=== PATIENT | male | born 1960 | race Caucasian/White ===

== ENCOUNTER → 2019-12-02 09:07 | Outpatient (BNVA) | payer OTHER, SELFPAY | PROVIDERS: Family Provider Family Medicine; PCP Family Medicine; Referring Provider Internal Medicine; Visit Provider Specialist | DX: Z86.73 Personal history of transient ischemic attack (TIA), and cerebral infarction without residual deficits (principal) | CPT/HCPCS: 99205 ==

== ENCOUNTER 2019-12-06 16:30 | Outpatient (CLI) | payer OTHER, SELFPAY ==
--- NOTE | 2019-12-06 16:45 | MRR_ITS ---
PROCEDURE INFORMATION: Exam: MR Head Without Contrast Exam date and time: 12/06/2019 4:36 PM Age: 59 years old Clinical indication: Condition or disease; Other: Cerebrovascular accident TECHNIQUE: Imaging protocol: MR of the head without contrast. COMPARISON: CT head wo con* [id number] 11/02/2019 1:32 PM FINDINGS: Brain: Scattered foci of subcortical and deep white matter T2 hyperintensities which may reflect chronic microvascular ischemia largest subcortical frontal lobe measures 0.5 CM. Areas of periventricular increased T2 signal change. No acute ischemic abnormality. No acute intracranial hemorrhage. Ventricles: Normal. No ventriculomegaly. Bones/joints: Unremarkable. Soft tissues: Unremarkable. Sinuses: Normal as visualized. No acute sinusitis. Mastoid air cells: Normal as visualized. No mastoid effusion. Orbits: Unremarkable. Basilar artery: Likely dolichoectasia distal basilar artery. MR/MR head wo con* [id number] IMPRESSION: 1. No acute ischemic injury. 2. Likely dolichoectasia distal basilar artery versus vessel tortuosity at the vertebral artery bifurcation. 3. Mild white matter signal changes suggesting microvascular ischemia on a chronic basis.
== END 2019-12-06 16:31 | disposition home or self-care (01) ==
LOC: RADSHAW 16:33
PROVIDERS: Family Provider Family Medicine; PCP Family Medicine; Visit Provider Specialist
DX: I63.9 Cerebral infarction, unspecified (principal)
CPT/HCPCS: 70551

== ENCOUNTER 2019-12-16 12:00 | Outpatient (CLI) | payer OTHER, SELFPAY | END 2019-12-16 12:01 | disposition home or self-care (01) | LOC: SLEEP 12-17 12:20 | PROVIDERS: Family Provider Family Medicine; PCP Family Medicine; Visit Provider Internal Medicine Cardiovascular Disease | DX: G47.39 Other sleep apnea (principal); R29.818 Other symptoms and signs involving the nervous system | CPT/HCPCS: G0399 ==

== ENCOUNTER 2019-12-18 11:21 | Outpatient (CLI) | payer OTHER, SELFPAY ==
--- NOTE | 2019-12-18 12:00 | ECG_ITS ---
NAME OF STUDY: TREADMILL STRESS TEST INDICATION: Chest Pain, EXERCISE TREADMILL STRESS ORDERING PHYSICIAN: Claudia CLINICAL INFORMATION: Chest discomfort INTERPRETATION: 1. The patient exercised for 6 minutes and 46 seconds on a Olu protocol. He reached a maximum heart rate of 140 beats per minute, which is 86 % of his maximum predicted heart rate. The test was stopped due to achieving the desired heart rate. 2. The baseline electrocardiogram reveals sinus rhythm with nonspecific ST wave changes and poor R wave progression, possible LVH by voltage criteria. 3. With exercise, there were no obvious ST segment changes to suggest ischemia. There was significant baseline artifact throughout the entire tracing which makes it nearly impossible to interpret. 4. The resting blood pressure was 146/106. The maximum blood pressure was 163/80. 5. At maximum exercise, the patient achieved 10.2 METs with a rate pressure product of 209. 6. The patient experienced no chest pain or arrhythmias during the examination. CONCLUSION: 1. Probably normal exercise treadmill test. 2. Average exercise capacity for age. 3. Hypertensive blood pressure response to exercise. 4. Clinical correlation recommended Electronically Signed On 12-18-2019 17:26:26 OPENER by Alejo Beasley M.D. [id number]
[2019-12-18 12:04] VITALS: BMI 24.9
[2019-12-18 12:20] VITALS: BP 149/103; PULSE 90
== END 2019-12-18 11:22 | disposition home or self-care (01) ==
LOC: CDL 11:22
PROVIDERS: Family Provider Family Medicine; PCP Family Medicine; Visit Provider Internal Medicine Cardiovascular Disease
DX: R06.00 Dyspnea, unspecified (principal)
CPT/HCPCS: 93017

== ENCOUNTER → 2020-02-25 10:59 | Outpatient (BNVA) | payer OTHER, SELFPAY | PROVIDERS: Family Provider Family Medicine; PCP Family Medicine; Visit Provider Family Medicine | DX: R05 Cough (principal); J30.1 Allergic rhinitis due to pollen | CPT/HCPCS: 87400 ==

== ENCOUNTER → 2020-03-23 15:42 | Outpatient (BNVA) | payer OTHER, SELFPAY | PROVIDERS: Family Provider Family Medicine; PCP Family Medicine; Visit Provider Specialist | DX: M54.9 Dorsalgia, unspecified (principal); R20.2 Paresthesia of skin; Z86.73 Personal history of transient ischemic attack (TIA), and cerebral infarction without residual deficits | CPT/HCPCS: 99214 ==

== ENCOUNTER 2020-04-14 20:00 | Outpatient (CLI) | payer OTHER, SELFPAY | END 2020-04-14 20:01 | disposition home or self-care (01) | LOC: SLEEP 04-15 11:59 | PROVIDERS: Family Provider Family Medicine; PCP Family Medicine; Visit Provider Family Medicine | DX: G47.33 Obstructive sleep apnea (adult) (pediatric) (principal) | CPT/HCPCS: 95811 ==

== ENCOUNTER → 2020-12-16 00:01 | Outpatient (BNVA) | payer OTHER, SELFPAY | PROVIDERS: Family Provider Family Medicine; PCP Family Medicine; Visit Provider Nurse Practitioner | DX: M25.569 Pain in unspecified knee (principal) | CPT/HCPCS: 84550; 84560 ==

== ENCOUNTER → 2021-01-01 08:03 | Outpatient (BNVA) | payer OTHER, SELFPAY | PROVIDERS: Family Provider Family Medicine; PCP Family Medicine; Referring Provider Family Medicine; Visit Provider Orthopaedic Surgery | DX: M51.16 Intervertebral disc disorders with radiculopathy, lumbar region (principal) | CPT/HCPCS: 72110 ==

== ENCOUNTER 2021-01-14 13:27 | Outpatient (RCR) | payer OTHER, SELFPAY | END 2021-01-24 23:59 | disposition home or self-care (01) | LOC: SPT 13:27 | PROVIDERS: PCP Family Medicine; Referring Provider Orthopaedic Surgery; Visit Provider Orthopaedic Surgery | DX: M48.061 Spinal stenosis, lumbar region without neurogenic claudication (principal) | CPT/HCPCS: 97110; 97162 ==

== ENCOUNTER 2021-01-25 06:00 | Outpatient (RCR) | payer OTHER, SELFPAY | END 2021-02-24 23:59 | disposition home or self-care (01) | LOC: SPT 06:00 | PROVIDERS: PCP Family Medicine; Referring Provider Orthopaedic Surgery; Visit Provider Orthopaedic Surgery | DX: M48.061 Spinal stenosis, lumbar region without neurogenic claudication (principal) | CPT/HCPCS: 97110 ==

== ENCOUNTER → 2021-03-11 09:20 | Outpatient (BNVA) | payer OTHER, SELFPAY | PROVIDERS: PCP Family Medicine; Visit Provider Specialist | DX: M25.512 Pain in left shoulder (principal) | CPT/HCPCS: 73030 ==

== ENCOUNTER 2021-03-15 14:52 | Outpatient (CLI) | payer OTHER, SELFPAY ==
--- NOTE | 2021-03-15 16:00 | MR_ITS ---
WS: [id number] MRI CERVICAL SPINE NONCONTRAST TECHNIQUE: Sagittal T1 and T2 imaging. Axial T2 imaging. The patient could not tolerate further imagi ng. CLINICAL INFORMATION: R52 - Pain, unspecified COMPARISON: None. FINDINGS: Straightening of the normal cervical lordosis. Mild spondylitic changes. Slight anterolisthesis C3 on C4. Disc space narrowing worse at C5-C6 and C6-C7. C2-C3: Normal. C3-C4: Slight anterolisthesis C3 on C4. Mild osteophytic ridging. Mild to moderate left and no signif icant right foraminal narrowing. Spinal canal is patent. Mild facet arthropathy. C4-C5: Mild disc bulging with osteophytic ridging. Moderate right and mild left foraminal narrowing. Spinal canal is patent. Moderate facet arthropathy. C5-C6: Disc osteophyte complex with endplate ridging. Mild central canal stenosis. Moderate right gre ater than left bony foraminal narrowing. Mild facet arthropathy. C6-C7: Slight retrolisthesis C6 on C7. Mild central canal stenosis. Moderate bilateral bony foraminal narrowing. C7-T1: Mild left and no significant right foraminal narrowing. Spinal canal is patent. T2 hyperintense left thyroid nodule measuring 1.9 x 2.3 cm. MR/MR cervical spin wo con* [id number] IMPRESSION: Images degraded by patient motion. 1. Straightening of the normal cervical lordosis. No high-grade central canal narrowing. Cord signal is normal. 2. Mild central canal stenosis C5-C6 and C6-C7 due to disc osteophyte complexe s. 3. Moderate bony foraminal narrowing worse at left C3-C4, bilateral C5-C6 grea ter on the right and bilateral C6-7. 4. T2 hyperintense left thyroid nodule measuring 1.9 x 2.3 CM. This can be fol lowed up with ultrasound.
== END 2021-03-15 14:53 | disposition home or self-care (01) ==
LOC: RADSHAW 14:55
PROVIDERS: PCP Family Medicine; Visit Provider Orthopaedic Surgery
DX: M54.2 Cervicalgia (principal); M48.02 Spinal stenosis, cervical region; E04.1 Nontoxic single thyroid nodule
CPT/HCPCS: 72141

== ENCOUNTER → 2021-03-25 11:52 | Outpatient (BNVA) | payer OTHER, SELFPAY | PROVIDERS: PCP Family Medicine; Visit Provider Nurse Practitioner Family | DX: Z20.822 Contact with and (suspected) exposure to COVID-19 (principal); J06.9 Acute upper respiratory infection, unspecified | CPT/HCPCS: 87635 ==

== ENCOUNTER 2021-04-09 16:21 | Outpatient (CLI) | payer OTHER, SELFPAY ==
--- NOTE | 2021-04-09 16:27 | MR_ITS ---
WS: [id number] MRI LUMBAR SPINE NONCONTRAST HISTORY: M51.16 - Intervertebral disc disorders with radiculopathy, lumbar region COMPARISON: None available. TECHNIQUE: Sagittal and axial multisequence imaging is submitted. Significant motion artifact on the axial sequence due to pain. Normal lumbar alignment with no compression fractures or marrow edema. Mild disc desiccation and narrowing at L4-5 and L5-S1. Conus terminates normally at L1. L1-L2: Significant motion artifact. No significant stenosis. L2-L3: Significant motion artifact. Mild foraminal narrowing due to disc bulge. L3-L4: Mild annular disc bulging and osteophytic ridging. Mild bilateral foraminal narrowing. Signifi cantly limited by motion artifact. L4-L5: Significant motion artifact. There is mild annular disc bulging and osteophytic ridging. L5-S1: There is significant motion artifact. There is diffuse annular disc bulging and possible more focal LEFT foraminal disc protrusion. Near complete effacement of fat in the LEFT foramen and moderat e on the RIGHT. Disc is abutting the L5 nerve roots. May be contacting the S1 nerve roots also. On th e axial imaging there is suggestion of central and bilateral subarticular recess disc protrusions. Bi lateral subarticular recess and foraminal stenosis. MR/MR lumbar spine wo con* [id number] IMPRESSION: 1. Quality of this examination is significantly limited involving the axial im aging. 2. There is significant stenosis involving the LEFT foramen at L5-S1 and moder ate on the RIGHT due to disc disease. Additional disc protrusions are suspected centrally and subarticular. The extent of the disc protrusions is difficult to determine with this amount of motion. There does appear to be disc encroachmen t upon the L5 and S1 nerve roots. 3. No additional significant stenosis.
== END 2021-04-09 16:22 | disposition home or self-care (01) ==
LOC: RADSHAW 16:25
PROVIDERS: PCP Family Medicine; Visit Provider Orthopaedic Surgery
DX: M51.16 Intervertebral disc disorders with radiculopathy, lumbar region (principal); M48.07 Spinal stenosis, lumbosacral region; M51.37 Other intervertebral disc degeneration, lumbosacral region
CPT/HCPCS: 72148

== ENCOUNTER → 2021-05-06 08:28 | Outpatient (BNVA) | payer OTHER, SELFPAY | PROVIDERS: PCP Family Medicine; Referring Provider Anesthesiology Pain Medicine; Visit Provider Anesthesiology Pain Medicine | DX: M54.9 Dorsalgia, unspecified (principal); M51.16 Intervertebral disc disorders with radiculopathy, lumbar region; M47.816 Spondylosis without myelopathy or radiculopathy, lumbar region; M47.812 Spondylosis without myelopathy or radiculopathy, cervical region | CPT/HCPCS: 99205 ==

== ENCOUNTER → 2021-05-14 13:44 | Outpatient (BNVA) | payer OTHER, SELFPAY | PROVIDERS: PCP Family Medicine; Visit Provider Anesthesiology Pain Medicine | DX: M54.16 Radiculopathy, lumbar region (principal); M54.9 Dorsalgia, unspecified | CPT/HCPCS: 64483; 64484; J1100; J3490 ==

== ENCOUNTER → 2021-05-28 09:52 | Outpatient (BNVA) | payer OTHER, SELFPAY | PROVIDERS: PCP Family Medicine; Visit Provider Anesthesiology Pain Medicine | DX: G89.29 Other chronic pain (principal); M51.16 Intervertebral disc disorders with radiculopathy, lumbar region; M47.816 Spondylosis without myelopathy or radiculopathy, lumbar region; M54.9 Dorsalgia, unspecified; M47.812 Spondylosis without myelopathy or radiculopathy, cervical region; M25.512 Pain in left shoulder | CPT/HCPCS: 99214 ==

== ENCOUNTER → 2021-06-11 10:05 | Outpatient (BNVA) | payer OTHER, SELFPAY | PROVIDERS: PCP Family Medicine; Visit Provider Internal Medicine Cardiovascular Disease | DX: I10 Essential (primary) hypertension (principal); G45.9 Transient cerebral ischemic attack, unspecified; I63.81 Other cerebral infarction due to occlusion or stenosis of small artery; G47.33 Obstructive sleep apnea (adult) (pediatric); F32.9 Major depressive disorder, single episode, unspecified | CPT/HCPCS: 80053; 80061; 83735; 85025 ==

== ENCOUNTER → 2021-06-18 09:58 | Outpatient (BNVA) | payer OTHER, SELFPAY | PROVIDERS: PCP Family Medicine; Visit Provider Anesthesiology Pain Medicine | DX: G89.29 Other chronic pain (principal); M51.16 Intervertebral disc disorders with radiculopathy, lumbar region; M47.816 Spondylosis without myelopathy or radiculopathy, lumbar region; M47.812 Spondylosis without myelopathy or radiculopathy, cervical region; M25.512 Pain in left shoulder | CPT/HCPCS: 99214 ==

== ENCOUNTER → 2021-07-09 12:23 | Outpatient (BNVA) | payer OTHER, SELFPAY | PROVIDERS: PCP Family Medicine; Visit Provider Anesthesiology Pain Medicine | DX: G89.29 Other chronic pain (principal); M51.16 Intervertebral disc disorders with radiculopathy, lumbar region | CPT/HCPCS: 62323 ==

== ENCOUNTER → 2021-07-23 10:54 | Outpatient (BNVA) | payer OTHER, SELFPAY | PROVIDERS: PCP Family Medicine; Visit Provider Anesthesiology Pain Medicine | DX: G89.29 Other chronic pain (principal); M51.16 Intervertebral disc disorders with radiculopathy, lumbar region; M47.816 Spondylosis without myelopathy or radiculopathy, lumbar region; M47.812 Spondylosis without myelopathy or radiculopathy, cervical region; M25.512 Pain in left shoulder | CPT/HCPCS: 99214 ==

== ENCOUNTER → 2021-08-06 12:52 | Outpatient (BNVA) | payer OTHER, SELFPAY | PROVIDERS: PCP Family Medicine; Visit Provider Orthopaedic Surgery | DX: Z01.812 Encounter for preprocedural laboratory examination (principal); Z20.822 Contact with and (suspected) exposure to COVID-19 | CPT/HCPCS: 87635 ==

== ENCOUNTER → 2021-08-11 11:15 | Day surgery (SDC) | payer OTHER, SELFPAY | PROVIDERS: PCP Family Medicine; Visit Provider Orthopaedic Surgery | DX: Z01.818 Encounter for other preprocedural examination (principal) | CPT/HCPCS: 93005 ==

== ENCOUNTER → 2021-08-11 14:55 | Outpatient (BNVA) | payer OTHER, SELFPAY | PROVIDERS: PCP Family Medicine; Visit Provider Orthopaedic Surgery | DX: Z01.812 Encounter for preprocedural laboratory examination (principal); M51.16 Intervertebral disc disorders with radiculopathy, lumbar region; Z20.822 Contact with and (suspected) exposure to COVID-19 | CPT/HCPCS: 87635 ==

== ENCOUNTER 2021-08-18 06:10 | Day surgery (SDC) | payer OTHER, SELFPAY ==
[2021-08-11 10:51] VITALS: BMI 26.4
--- NOTE | 2021-08-11 11:15 | ECG_ITS ---
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: : [id number] Requested By: Will Nieves Order Number: [id number] Tao MD: ALEXUS JONES Measurements Intervals [place] Rate: 73 P: 33 LA: 210 QRS: -13 QRSD: 99 T: 31 QT: 405 QTc: 449 Interpretive Statements SINUS RHYTHM WITH FIRST DEGREE AV BLOCK MINIMAL VOLTAGE CRITERIA FOR LVH, CONSIDER NORMAL VARIANT [MEETS CRITERIA IN ONE OF: R(aVL), S(V1), R(V5), R(V5/V6)+S(V1)] Compared to ECG 11/02/2019 19:52:33 First degree AV block now present T-wave abnormality no longer present Electronically Signed On 08-11-2021 19:28:36 CDT by ALEXUS JONES [id number]
--- NOTE | 2021-08-11 16:06 | ANES.PREANE2 ---
Pre-Anesthetic Assessment Pre-Anesthetic Assessment: Height/Weight: Height 1.8 m Weight 86.183 kg Proposed Procedure: Operation Date: 08/18/21 12:40 Proposed Procedures p Lumbar decompression (26452) L4/5 (73296) L5/S1 M47.816 M51.16(Not Applicable) - Francisco Constantino, DO Was Beta Lyssa taken within 24 hours: N/A Was Clonidine taken within 24 hours: N/A Social: Social History: Tobacco and No alcohol Exam: Pre-Anes Outpt Exam: alert, oriented x 3 and regular rate & rhythm Airway: Submandibular: WNL Cervical ROM: WNL MP: 2 Dentition: Chipped Pulmonary: Pulmonary: Sleep apnea CV/HEM: CV/HEM: HTN Metabolic: Metabolic: Hyperlipidemia Musc/skel: Musc/skel: Lower Back Pain and OA/DJD Neuropsych: Neuropsych: Anxiety, Depression and TIA Anesthetic Plan: ASA status: 3 Anesthesia: General Risk of > 500 ml blood loss (7ml/kg in children): No PFSH Anesthesia PFSH: Medical History Cervical disc disease with myelopathy Depression Hypertension Lacunar stroke of right subthalamic region EKTA (obstructive sleep apnea) Palpitations Status migrainosus Family History Mother Hypertension Brother Hypotension Social History Second hand smoke exposure: No Alcohol intake: former Marital status: History of recent travel: No Data Anesthesia Cardiac Studies: Holter Monitor 12/03/19
--- NOTE | 2021-08-18 | SCC_ITS ---
Procedure Done: 1. L4/5 bilateral laminectomy with partial facetectomy 2. L5/S1 bilateral laminectomy with partial facetectomy 16.9 seconds of fluoroscopic guidance, for a cumulative dose of 5.85 mGy, was provided to Dr. Constantino by the radiology department. C-arm images of the lumbar spine were saved for the patient's permanent record. [facility]
--- NOTE | 2021-08-18 | XR_ITS ---
WS: [id number] Lumbar spine, C-arm fluoroscopy, 08/18/2021 Clinical Data: L4/L5 L5/S1 decompression Comparison: None. Findings: Dr. Constantino performed decompression at the L4-L5 and L5-S1 levels. XR/XR lumbar spine 1V [id number] Impression: Lumbar decompression at L4-L5 and L5-S1.
--- NOTE | 2021-08-18 06:42 | W.PM.OPSUD ---
Surgery/Procedure H&P Update DATE OF PROCEDURE: August 18, 2021 DATE H&P PERFORMED: 08/18/21 PREOP DIAGNOSIS: lumbar stenosis with neurogenic claudication PLANNED PROCEDURE: Operation Date: 08/18/21 07:00 Proposed Procedures p Lumbar decompression (73510) L4/5 (52093) L5/S1 M47.816 M51.16(Not Applicable) - Francisco Constantino DO
--- NOTE | 2021-08-18 06:43 | PM.HP ---
Providers/Chief Complaint Primary Care Provider: Davin Roe MD Chief Complaint: Lumbar decompression (76972) L4/5 (05212) L5/S1 History of Present Illness Elieser Griffin is a 61 year old male lumbar pain. Onset: fell off a horse when younger Duration: years Characteristics: burning Severity: moderate Location: lower back Radiating symptoms: into the hip and left leg Aggravating factors: bending, standing for long periods, movement in general Alleviating factors: rest Neuro deficits: Patient denies numbness, tingling, weakness, incontinence of bowel/bladder, saddle anesthesia. Prior tx: none Associated symptoms: Denies abdominal pain, chills, fever(s), nausea or vomiting Review of Systems Narrative: General ROS: negative for weight changes, fever ENT ROS: negative for nasal congestion, drainage or bleeding, sore throat, dysphagia or ear pain Eyes: PERRL Hematological and Lymphatic ROS: negative for swollen glands or abnormal bleeding Endocrine ROS: negative for polyuria/polydpsia or new changes in weight Respiratory ROS: negative for cough, shortness of breath, or wheezing Cardiovascular ROS: negative for chest pain or dyspnea on exertion Gastrointestinal ROS: negative for reflux, abdominal pain, change in bowel habits, or black or bloody stools Musculoskeletal ROS: negative for back pain, neck pain, or joint pain or swelling except for current problem Neurological ROS: negative for TIA or stoke symptoms Skin: no rashes Medications/Allergies Home Medications Medication Instructions Recorded Confirmed Last Taken Type aspirin 325 mg tablet 325 mg PO DAILY #30 tab 11/16/20 08/11/21 06/26/21 Rx atorvastatin 40 mg tablet 40 mg PO DAILY #90 tab 11/16/20 08/18/21 08/17/21 Rx indomethacin 50 mg capsule 50 mg PO BID 30 Days #60 cap 02/08/21 08/18/21 08/18/21 Rx gabapentin 300 mg capsule 300 mg PO TID #90 cap 05/28/21 08/18/21 08/17/21 Rx losartan 100 1 tab PO DAILY #90 tab 06/11/21 08/18/21 08/17/21 Rx mg-hydrochlorothiazide 25 mg tablet nifedipine 90 mg tablet,extended 90 mg PO DAILY #90 tab 06/11/21 08/18/21 08/18/21 Rx release potassium chloride 10 mEq 10 meq PO DAILY #35 tab 06/15/21 08/18/21 08/18/21 Rx tablet,extended release venlafaxine 150 mg See Rx Instructions .ROUTE 08/15/21 08/18/21 08/17/21 Rx capsule,extended release 24 hr .COMPLEX #60 cap Allergies Allergy/AdvReac Type Severity Reaction Status Date / Time No Known Allergies Allergy Verified 07/23/21 11:03 PFSH Acute PFSH: Medical History Cervical disc disease with myelopathy Depression Hypertension Lacunar stroke of right subthalamic region EKTA (obstructive sleep apnea) Palpitations Status migrainosus Family History Mother Hypertension Brother Hypotension Social History Second hand smoke exposure: No Alcohol intake: former Marital status: History of recent travel: No Physical Exam Narrative: EXAM NARRATIVE: CONSTITUTIONAL: The patient is a normal appearing [] in no apparent distress. GENERAL: Patient in no acute distress. CARDIAC: Regular rate and rhythm. CHEST: Normal inspiratory effort, normal respiratory rate. ABDOMEN: Soft and nontender. SKIN: Clear, warm and intact. NEURO?PSYCH: The patient is alert and oriented to person, place and time. Sensorv /SILT Motor StrengthShoulder abduction C5 5/5Wrist extension C6 5/5Elbow extension C7 5/5Hand Fan Engine Engineer C8 5/5Finger abduction T15/5 Radial/ Ulnar/ Median n intact LowerSensory (SILT)Motor StrengthHin flexion L2/3Ant/inner thigh 5/5Hip adduction L2/3 5/5Knee extension L4 Lat thigh, 5/5Toe dorsiflexion L5 5/5Ankle dorsiflexion L5/ D35Lxqopsw flexion S1 5/5 DTRBleeps 2+Triceps 2+Brachioradialis 2+Patellar 2+Achilles 2+ MUSCULOSKELETAL: [] UPPEREXTREMITIES: The patient had full active ROM in fingers, wrist, elbow, and shoulder. The patient demonstrated ability to fully flex/extend/abduct/adduct fingers, make ok sign, cross 2nd/3rd digits, extend 1st digit fully.. Radial pulse 2+, CR<2 seconds. LOWER EXTREMITIES: Pt has full, active ROM of toes, ankle, knee, and hip. Dorsalis pedis/posterior tibialis pulses 2+, CR<2 seconds. SPINE: Skin warm, dry, intact. A&P Assessment and plan (1) Lumbar stenosis with neurogenic claudication: L4/5 and L5/S1 Bilateral decompression Status: Acute Attestations Medical Necessity Statement*: failed conservative tx Coding Level of Care Code Acute Sports Official for [facility] Fwd Diagnoses Lumbar stenosis with neurogenic claudication M48.062
[2021-08-18 06:52] VITALS: BP 161/112; PULSE 78; RESP 18; TEMP 36.6; O2SAT 97
[2021-08-18] MEDS: sodium chloride 0.9% 1,000 ML 30 ML IV (06:54)
--- NOTE | 2021-08-18 06:56 | P.ANESUD_ITS ---
Pre-Anesthetic Update Pre-Anesthetic Assessment: Date of Surgery/Procedure: 08/18/21 Preop Shakira gnosis: lumbar stenosis with neurogenic claudication Proposed Procedure: Operation Date: 08/18/21 07:00 Proposed Procedures p Lumbar decompression (99445) L4/5 (31600) L5/S1 M47.816 M51.16(Not Applicable) - Francisco Constantino, DO Any changes to Pre-Anesthetic Assessment?: No Last Intake: Intake Last Liquid Date 08/17/21 Last Liquid Time 22:00 Last Solid Date 08/17/21 Last Solid Time 22:00 Vitals: Temperature 97.9 F 08/18/21 06:52 Temperature Source Temporal Artery S can 08/18/21 06:52 Pulse Rate 78 08/18/21 06:52 Pulse Rhythm 08/18/21 06:23 Pulse Strength 3+ Normal 08/18/21 06:23 Respiratory Rate 18 08/18/21 06:52 Blood Pressure 161/112 08/18/21 06:52 Blood Pressure Jennifer n 128 08/18/21 06:52 Pulse Oximetry 97 08/18/21 06:52 Oxygen Delivery Me thod 08/18/21 06:52 Exam: Pre-Anes Outpt Exam: alert, oriented x 3 and clear to auscultation bilaterally
--- NOTE | 2021-08-18 08:33 | P.OP_ITS ---
Operative Report Date of procedure: August 18, 2021 Pre-op Diagnosis: lumbar stenosis with neurogenic claudication Post-op diagnosis: same Procedure Done: 1. L4/5 bilateral laminectomy with partial facetectomy 2. L5/S1 bilateral laminectomy with partial facetectomy Surgeon: Francisco Constantino Viner Operator: Kirill Rouse Viner Operator: Kirill ORDONEZ assisted with positioning the patient assisted with suction and retracting and closure of the patient. Anesthesia: General Estimated blood loss (mL): 5 Condition: stable Disposition: PACU Procedure: 1. L4/5 bilateral laminectomy with partial facetectomy 2. L5/S1 bilateral laminectomy with partial facetectomy Patient is brought to the operative suite. After undergoing anesthesia they are placed in the supine position. All areas of impingement are well padded. Patient is then prepped and draped in the normal sterile fashion. A skin incision is made over the L4/5 level. This is confirmed under c-arm guidance. A series of dilators are passed and the tubular retractor is docked on the L4 lamina. A bovie is used to clear the soft tissue off the lamina and the L 4/5 facet joint. A high speed kali is then used to perform the laminectomy and take down the medial aspect of the L 4/5 facet joint. A kerrison rongeure was then used to take down the remaining lamina and smooth the edged of the laminectomy up to the point where the ligamentum flavum attaches. Attention was then brought to the medial aspect of the facet joint. The remaining medial aspect of the superior and inferior aspect of the facet joint were taken down with the kerrison from the pedicle of L4 to L 5. The facet joint had significant hypertrophy. Attention was then brought to the Ligamentum Flavum. The ligament was taken down from the lamina of L4 to L5 and out medially to the remaining facet joint. The ligament was thick. The dura was then exposed. The dura was in good repair. The L4 nerve was then traced with a curette out the L4/5 foramen and found to be adequately decompressed. The L5 nerve was traced with a curette around the L5 pedicle. The lateral recess was opened with a kerrison helping to further decompress the L5 nerve. The tubular retractor was then tilted to the contralateral side. The bovie was used to take down the soft tissue on the spinous process. The high speed kali was used to take down the spinous process and then the contralateral lamina of L4. The kerrison rongeur was used to take down the remaining lamina to the point where the ligamentum flavum attached and the ligamentum flavum was taken down from L4 to L5. The kerrison rongeur was then used to reach across and take down the medial aspect of the contralateral L4/5 facet joint.The currete was used to trace the contralateral L4 nerve out the L4/5 foramen to make sure it was decompressed adequatesly and the L5 was traced around the L5 pedicle. The lateral recess was opened further with the kerrison to ensure the L5 is adequately decompressed. Wound is then irrigated copiously with saline and surgiflo is used to stop any bleeding. The tubular retractor is removed and A skin incision is made over the L5/S1 level. This is confirmed under c-arm guidance. A series of dilators are passed and the tubular retractor is docked on the L5 lamina. A bovie is used to clear the soft tissue off the lamina and the L 5/S1 facet joint. A high speed kali is then used to perform the laminectomy and take down the medial aspect of the L 5/S1 facet joint. A kerrison rongeure was then used to take down the remaining lamina and smooth the edged of the laminectomy up to the point where the ligamentum flavum attaches. Attention was then brought to the medial aspect of the facet joint. The remaining medial aspect of the superior and inferior aspect of the facet joint were taken down with the kerrison from the pedicle of L5 to S1. The facet joint had significant hypertrophy. Attention was then brought to the Ligamentum Flavum. The ligament was taken do wn from the lamina of L5 to S1 and out medially to the remaining facet joint. The ligament was thick and calcified. The dura was then exposed. The dura was in good repair. The L5 nerve was then traced with a curette out the L5/S1 foramen and found to be adequately decompressed. The S1 nerve was traced with a curette around the S1 pedicle. The lateral recess was opened with a kerrison helping to further decompress the S1 nerve. The tubular retractor was then tilted to the contralateral side. The bovie was used to take down the soft tissue on the spinous process. The high speed kali was used to take down the spinous process and then the contralateral lamina of L5. The kerrison rongeur was used to take down the remaining lamina to the point where the ligamentum flavum attached and the ligamentum flavum was taken down from L5 to S1. The kerrison rongeur was then used to reach across and take down the medial aspect of the contralateral L5/S1 facet joint.The currete was used to trace the contralateral L5 nerve out the L5/S1 foramen to make sure it was decompressed adequatesly and the S1 was traced around the s1 pedicle. The lateral recess was opened further with the kerrison to ensure the S1 is adequately decompressed. Wound is then irrigated copiously with saline and surgiflo is used to stop any bleeding. The tubular retractor is removed and the wound is closed with vicryl and monocryl suture. Glue is then used to protect the wound. A sterile dressing is then placed. Patient was then placed in the supine position and transferred to the PACU in stable condition.
[2021-08-18 08:34] VITALS: BP 163/98; PULSE 91; RESP 18; TEMP 36.4; O2SAT 100
[2021-08-18 08:40] VITALS: BP 151/98; PULSE 92; RESP 19; O2SAT 94
[2021-08-18 08:45] VITALS: BP 161/94; PULSE 87; RESP 14; TEMP 36.6; O2SAT 93
[2021-08-18] MEDS: HYDROcodone-acetaminophen 5-325 mg Tablet 1 TAB PO (09:12)
[2021-08-18 09:15] VITALS: BP 159/103; PULSE 83; RESP 18; O2SAT 91
--- NOTE | 2021-08-18 13:57 | ANE.PACU2 ---
Inpatient post-anesthesia follow up: Airway intact: Yes Vital signs: Temperature 97.8 F Pulse Rate 83 Respiratory Rate 18 Blood Pressure 159/103 Pulse Oximetry 91 Oxygen Delivery Me thod Room Air Oxygen Flow Rate Fraction of Inspir ed Oxygen Hydration adequate: Yes Nausea and vomiting: No Pain level: 3 Mental status: Baseline
== END 2021-08-18 10:01 | disposition home or self-care (01) ==
PROVIDERS: PCP Family Medicine; Visit Provider Orthopaedic Surgery
PROC: (CPT 63005; principal; 2021-08-18 07:00)
DX: M48.062 Spinal stenosis, lumbar region with neurogenic claudication (principal); G47.30 Sleep apnea, unspecified; I10 Essential (primary) hypertension; E78.5 Hyperlipidemia, unspecified; M19.90 Unspecified osteoarthritis, unspecified site; F41.9 Anxiety disorder, unspecified; F32.9 Major depressive disorder, single episode, unspecified; Z86.73 Personal history of transient ischemic attack (TIA), and cerebral infarction without residual deficits; G47.33 Obstructive sleep apnea (adult) (pediatric); Z82.49 Family history of ischemic heart disease and other diseases of the circulatory system; Z79.82 Long term (current) use of aspirin
CPT/HCPCS: 63047; 63048; 72020; 76000; J0330; J0690; J1100; J2370; J2405; J2704; J2710; J3010; J3490; J7030

== ENCOUNTER → 2021-09-10 10:34 | Outpatient (BNVA) | payer OTHER, SELFPAY | PROVIDERS: PCP Family Medicine; Visit Provider Anesthesiology Pain Medicine | DX: G89.29 Other chronic pain (principal); M47.812 Spondylosis without myelopathy or radiculopathy, cervical region; M25.512 Pain in left shoulder; M51.16 Intervertebral disc disorders with radiculopathy, lumbar region; M47.816 Spondylosis without myelopathy or radiculopathy, lumbar region; I10 Essential (primary) hypertension; Z79.891 Long term (current) use of opiate analgesic | CPT/HCPCS: 99214 ==

== ENCOUNTER → 2021-09-30 10:55 | Outpatient (BNVA) | payer OTHER, SELFPAY | PROVIDERS: PCP Family Medicine; Visit Provider Specialist | DX: M54.12 Radiculopathy, cervical region (principal); S43.432A Superior glenoid labrum lesion of left shoulder, initial encounter; X58.XXXA Exposure to other specified factors, initial encounter; Z79.891 Long term (current) use of opiate analgesic | CPT/HCPCS: 62321; 73030; J1100; J3490 ==

== ENCOUNTER → 2021-10-13 09:37 | Outpatient (BNVA) | payer OTHER, SELFPAY | PROVIDERS: PCP Family Medicine; Visit Provider Anesthesiology Pain Medicine | DX: G89.29 Other chronic pain (principal); M47.812 Spondylosis without myelopathy or radiculopathy, cervical region; M25.512 Pain in left shoulder; M51.16 Intervertebral disc disorders with radiculopathy, lumbar region; M47.816 Spondylosis without myelopathy or radiculopathy, lumbar region | CPT/HCPCS: 99213 ==

== ENCOUNTER → 2021-11-25 08:12 | Outpatient (BNVA) | payer OTHER, SELFPAY | PROVIDERS: PCP Family Medicine; Visit Provider Physician Assistant | DX: M48.062 Spinal stenosis, lumbar region with neurogenic claudication (principal) | CPT/HCPCS: 72110 ==

== ENCOUNTER 2022-02-16 14:44 | Outpatient (CLI) | payer OTHER, SELFPAY ==
--- NOTE | 2022-02-16 14:53 | MR_ITS ---
WS: [id number] MRI LEFT SHOULDER ARTHROGRAM TECHNIQUE: Sagittal T2, coronal T1, T2 and proton density imaging. Axial gradient PDE imaging. Post a rthrogram imaging CLINICAL INFORMATION: M25.512 - Pain in left shoulder FINDINGS: Some images degraded by patient motion due to shoulder pain. Mild degenerative arthritis AC joint. Small amount of edema in the AC joint. Chronic thinning of the supraspinatus. Mild downsloping acromion with slight subacromial spurring. Mild narrowing glenohumera l joint with hypertrophic spurring. High-grade near full-thickness tear of the anterior supraspinatus. Suggestion of a small amount of re sidual tendon. No significant tendon retraction. Normal infraspinatus. Complete full-thickness tear o f the subscapularis with tendon retraction to the level of the glenohumeral joint. Remnant tendon at the distal insertion. Biceps tendon is not visualized within the bicipital groove. Intra-articular bi ceps tendon appears completely torn just distal to the biceps labral anchor. No biceps tendon visuali zed within the rotator interval or bicipital groove. Normal teres minor. Middle glenohumeral ligament appears intact. Normal bone marrow signal in the humerus and glenoid. MR/MR shoulder LT wo/w con [id number] IMPRESSION: 1. Short segment high-grade tear involving the anterior supraspinatus .No sign ificant tendon retraction. 2. Complete tear of the subscapularis tendon with retraction to the level of g lenohumeral joint. Small amount of remnant tendon distally at the humeral inser tion. 3. Empty bicipital groove. Biceps tendon in the bicipital groove is not visual ized. 4. Intra-articular biceps tendon appears completely torn just distal to the bi ceps labral anchor. 5. Degenerative arthritis at the AC joint with mild edema and slight subacromi al spurring.
--- NOTE | 2022-02-16 14:53 | IR_ITS ---
WS: [id number] Left shoulder arthrogram, 02/16/2022 Clinical Data: S43.439A - Superior glenoid labrum lesion of unspecified ... Comparison: None. Fluoroscopy time: 2.0 minutes. Findings: With the usual technique, a 22-gauge small spinal needle was inserted into the left shoulder joint. A fter localizing the needle tip with 1 mL of Omnipaque at a concentration of 240 mg/mL, an injection o f 14 mL of dilute gadolinium was done. The shoulder joint shows a normal outline. No evidence of a rotator cuff tear could be seen. IR/IR arthrogram shoulderLT [id number] Impression: Satisfactory injection of a dilute gadolinium into the left shoulder joint for preparation for MR arthrogram.
[2022-02-16] MEDS: iohexol 240 mg/mL 50 mL Btl INTRA-ARTI (16:40)
== END 2022-02-16 14:45 | disposition home or self-care (01) ==
LOC: RAD 14:44
PROVIDERS: PCP Family Medicine; Visit Provider Specialist
DX: S43.439A Superior glenoid labrum lesion of unspecified shoulder, initial encounter (principal); S46.012A Strain of muscle(s) and tendon(s) of the rotator cuff of left shoulder, initial encounter; S46.912A Strain of unspecified muscle, fascia and tendon at shoulder and upper arm level, left arm, initial encounter; X58.XXXA Exposure to other specified factors, initial encounter; M19.012 Primary osteoarthritis, left shoulder
CPT/HCPCS: 23350; 73223; 77002; A9577

== ENCOUNTER → 2022-03-22 15:17 | Outpatient (BNVA) | payer OTHER, SELFPAY | PROVIDERS: PCP Family Medicine; Visit Provider Family Medicine | DX: H61.22 Impacted cerumen, left ear (principal); R06.02 Shortness of breath; I10 Essential (primary) hypertension; E78.00 Pure hypercholesterolemia, unspecified; R00.2 Palpitations; H81.10 Benign paroxysmal vertigo, unspecified ear; F32.9 Major depressive disorder, single episode, unspecified | CPT/HCPCS: 80053; 80061; 85025 ==

== ENCOUNTER → 2022-03-30 13:46 | Outpatient (BNVA) | payer OTHER, SELFPAY | PROVIDERS: PCP Family Medicine; Visit Provider Family Medicine | DX: E78.00 Pure hypercholesterolemia, unspecified (principal); E87.6 Hypokalemia | CPT/HCPCS: 80048 ==

== ENCOUNTER → 2022-07-04 09:30 | Outpatient (BNVA) | payer OTHER, SELFPAY | PROVIDERS: PCP Family Medicine; Visit Provider Family Medicine | DX: D23.5 Other benign neoplasm of skin of trunk (principal); E78.00 Pure hypercholesterolemia, unspecified; I10 Essential (primary) hypertension | CPT/HCPCS: 80061 ==

== ENCOUNTER → 2022-07-05 07:37 | Outpatient (BNVA) | payer OTHER, SELFPAY | PROVIDERS: PCP Family Medicine; Visit Provider Family Medicine | DX: D23.5 Other benign neoplasm of skin of trunk (principal); E78.00 Pure hypercholesterolemia, unspecified; I10 Essential (primary) hypertension; E87.6 Hypokalemia | CPT/HCPCS: 80053 ==

== ENCOUNTER 2023-07-26 04:11 | Emergency (ER) | payer OTHER, MEDICAID, SELFPAY ==
--- NOTE | 2023-07-26 04:12 | ECG_ITS ---
[facility] Test Date: 2023-07-26 Pat Name: Elieser Griffin Department: Room: Gender: Male In House Cra: : 1960 Requested By: Jessica Cam Order Number: [id number] Tao MD: Macie Taylor M.D. Measurements Intervals [place] Rate: 89 P: 35 TN: 201 QRS: -12 QRSD: 105 T: 60 QT: 386 QTc: 470 Interpretive Statements SINUS RHYTHM MODERATE VOLTAGE CRITERIA FOR LVH, CONSIDER NORMAL VARIANT [MEETS CRITERIA IN ONE OF: R(aVL), S(V1), R(V5), R(V5/V6)+S(V1)] NONSPECIFIC T-WAVE ABNORMALITY Compared to ECG 08/11/2021 11:29:02 T-wave abnormality now present First degree AV block no longer present Electronically Signed On 07-26-2023 8:41:22 CDT by Macie Taylor M.D. [email or web address].[email or web address]/store/[id number]
--- NOTE | 2023-07-26 04:12 | XRR_ITS ---
PROCEDURE INFORMATION: Exam: XR Chest Exam date and time: 07/26/2023 4:49 AM Age: 63 years old Clinical indication: Other: Epigastric pain; Additional info: Cp TECHNIQUE: Imaging protocol: Radiologic exam of the chest. Views: 1 view. COMPARISON: CR XR ribs LT mn 3V w CXR1V [id number] 04/15/2019 4:03 PM FINDINGS: Lungs: The lung parenchyma is clear. Pleural spaces: No pneumothorax. No pleural effusion. Heart/Mediastinum: The cardiomediastinal silhouette is within normal limits. Bones/joints: Postsurgical changes in the proximal right humerus. XR/XR chest 1V portable [id number] IMPRESSION: No acute cardiopulmonary abnormality.
[2023-07-26 04:16] VITALS: BP 141/108; PULSE 90; RESP 19; TEMP 36.5; O2SAT 98; BMI 25.7
[2023-07-26 04:22] VITALS: BP 141/108; PULSE 93; RESP 21; O2SAT 98
--- NOTE | 2023-07-26 04:24 | USR_ITS ---
PROCEDURE INFORMATION: Exam: US Abdomen, Limited; Right Upper Quadrant Exam date and time: 07/26/2023 4:31 AM Age: 63 years old Clinical indication: Abdominal pain; Epigastric; Additional info: Ruq pain TECHNIQUE: Imaging protocol: Real time ultrasound of the abdomen with image documentation. Limited exam focused on the right upper quadrant. COMPARISON: CT abdomen pelvis w con* [id number] 02/20/2019 1:54 AM FINDINGS: Liver: Unremarkable. Gallbladder: Echogenic posterior acoustic shadowing gallstones noted, measuring up to 1.6 cm in diameter. No pericholecystic fluid. No gallbladder wall thickening by my measurements. Negative sonographic Holman sign. Biliary ducts: Normal. No stones. No dilation. Pancreas: Pancreas is not well visualized. Right kidney: The right kidney measures 11.2 x 4.5 x 5.3 cm. No hydronephrosis. US/US gall bladder [id number] IMPRESSION: Cholelithiasis without evidence of acute cholecystitis.
--- NOTE | 2023-07-26 04:24 | ED_ITS ---
HPI - Chest Pain General: Chief Complaint: Chest Pain Stated Complaint: Chest Pains Thru Back Time Seen by Provider: 07/26/23 04:15 Source: patient Mode of arrival: ambulatory Limitations: no limitations History of Present Illness: 63-year-old male states that over the last 2 days been having epigastric pain along with some chest pain. States he feels like the pain is mainly in his epigastric felt like he is needing to burp he has been burping but really no relief pain pain is currently 7 out of 10 he also has some back pain. He is in no severe distress here he has had no vomiting no diarrhea no shortness of breath. Associated symptoms: Reports abdominal pain; Deny dyspnea, fever(s), nausea or vomiting Review of Systems Const: Denies: fever(s) or chills ENMT: Denies: throat pain or dental pain Card: Denies: chest pain Resp: Denies: dyspnea GI: Reports: abdominal pain; Denies: nausea, vomiting or diarrhea Musc: Denies: neck pain or back pain Skin/Breast: Denies: rash Neuro: Denies: headache(s) PFSH ED PFSH: Medical History Cervical disc disease with myelopathy Depression Hypercholesteremia Hypertension Lacunar stroke of right subthalamic region EKTA (obstructive sleep apnea) Palpitations Post laminectomy syndrome Status migrainosus Family History Mother Hypertension Brother Hypotension Social History Smoking and tobacco status: never smoked Second hand smoke exposure: No Alcohol intake: current Substance/Drug Use: never Marital status: Physical Exam Const: COMMON NORMALS: no acute distress, patient oriented x3 and healthy appearing HENMT: COMMON NORMALS: normocephalic and atraumatic HEAD & SCALP: normocep halic and atraumatic Neck/C-Spine: COMMON NORMALS: full ROM and supple Chest: COMMONS NORMALS: normal inspection of the chest and normal palpation of entire chest wall Resp: COMMON NORMALS: normal respiratory effort, No retractions, No use of accessory muscles and clear to auscultation bilaterally AUSCULTATION: clear to auscultation bilaterally Cardio: COMMON NORMALS: regular rate, regular rhythm and No murmurs present (Cardio) RATE: regular rate RHYTHM: regular rhythm GI: COMMON NORMALS: Normal to inspection, nondistended, normoactive bowel s ounds present, Soft to palpation and no masses PALPATION: Yes Soft to pal pation and Yes Tenderness to palpation present (GI) Details: RUQ Extremity: COMMON NORMALS: normal to inspection and full ROM Neuro: COMMON NORMALS: patient oriented x3, moves all extremities and no focal motor deficits Psych: COMMON NORMALS: mental status grossly normal, Normal thought process present and cooperative THOUGHT PROCESS: Normal thought process present Skin: COMMON NORMALS: no rashes or lesions noted and no wounds GENERAL SKIN EXAM: no rashes or lesions noted Course Vital Signs: Vital signs: Vital Signs Temperature 97.7 F 07/26/23 04:16 Pulse Rate 93 07/26/23 04:22 Respiratory Rate 16 07/26/23 04:29 Blood Pressure 141/108 07/26/23 04:22 Pulse Oximetry 98 07/26/23 04:22 Oxygen Delivery Me thod Room Air 07/26/23 04:22 MDM - Chest Pain Medical Decision Making Patient presents here with right upper quadrant abdominal pain ultrasound does s how gallstones pains likely biliary colic his pains improved here blood works normal no signs of acute cholecystitis no signs of acute coronary syndrome troponin is normal we will place him on hydrocodone Zofran and get him surgery follow-up he is return if worsening he understands agrees to plan. Medical Records I reviewed the patient's medical records. Lab Data I reviewed the patient's lab results. 07/26/23 04:20 07/26/23 04:20 Radiology Impressions Chest X-Ray 07/26/23 04:12 IMPRESSION: No acute cardiopulmonary abnormality. Gallbladder Ultrasound 07/26/23 04:24 IMPRESSION: Cholelithiasis without evidence of acute cholecystitis. Laboratory Results WBC 8.97 10^3/uL (3.29-11.43) 07/26/23 04:20 RBC 4.56 10^6/uL (3.85-5.65) 07/26/23 04:20 Hgb 13.50 g/dL (11.27-16.99) 07/26/23 04:20 Hct 39.1 % (37-53) 07/26/23 04:20 MCV 85.7 fl (82-101) 07/26/23 04:20 MCH 29.6 pg (27-33) 07/26/23 04:20 MCHC 34.5 g/dL (30-55) 07/26/23 04:20 RDW 13.6 % (12.1-15.1) 07/26/23 04:20 Plt Count 304 10^3/cmm (157-399) 07/26/23 04:20 MPV 10.1 fL (7.4-10.4) 07/26/23 04:20 Neut % (Auto) 45.1 % 07/26/23 04:20 Lymph % (Auto) 36.1 % 07/26/23 04:20 [place] % (Auto) 12.4 % 07/26/23 04:20 Eos % (Auto) 5.0 % 07/26/23 04:20 Baso % (Auto) 1.2 % 07/26/23 04:20 Neut # (Auto) 4.04 10^3/uL (1.8-7.7) 07/26/23 04:20 Lymph # (Auto) 3.2 10^3/uL (0.8-4.8) 07/26/23 04:20 [place] # (Auto) 1.1 10^3/uL (0.2-0.9) H 07/26/23 04:20 Eos # (Auto) 0.5 10^3/uL (0.0-0.8) 07/26/23 04:20 Baso # (Auto) 0.1 10^3/uL (0.0-0.1) 07/26/23 04:20 Nucleated RBC % (auto) 0 % 07/26/23 04:20 Nucleated RBCs # 0.0 /100WBC 07/26/23 04:20 PT 14.90 SECONDS (12.1-14.9) 07/26/23 04:20 INR 1.13 (0.8-1.2) 07/26/23 04:20 Sodium 141 mmol/L (136-145) 07/26/23 04:20 Potassium 3.3 mmol/L (3.5-5.1) L 07/26/23 04:20 Chloride 102 mmol/L (98-107) 07/26/23 04:20 Carbon Dioxide 31 mmol/L (22-29) H 07/26/23 04:20 Anion Gap 11.3 (5-19) 07/26/23 04:20 BUN 20 mg/dL (8-23) 07/26/23 04:20 Creatinine 0.9 mg/dL (0.7-1.2) 07/26/23 04:20 GFR Calculation 85.2 mL/min (90-130) L 07/26/23 04:20 Glucose 100 mg/dL (65-115) 07/26/23 04:20 Calculated Osmolality 295 mOsm/kg (285-295) 07/26/23 04:20 Calcium 9.0 mg/dL (8.5-10.5) 07/26/23 04:20 Total Bilirubin 0.3 mg/dL (0.15-1.2) 07/26/23 04:20 AST 15 U/L (0-40) 07/26/23 04:20 ALT 17 U/L (0-41) 07/26/23 04:20 Alkaline Phosphatase 94 U/L (40-130) 07/26/23 04:20 Troponin T Baseline 13 ng/L (0-15) 07/26/23 04:20 Total Protein 7.3 g/dL (6.6-8.7) 07/26/23 04:20 Albumin 4.4 g/dL (3.5-5.2) 07/26/23 04:20 Globulin 2.9 g/dL (1.3-4.6) 07/26/23 04:20 Lipase 54 U/L (13-60) 07/26/23 04:20 EKG Data EKG 1: I personally reviewed and interpreted this EKG as follows: EKG interpretation date: 07/26/23 EKG interpretation time: 04:16 Interpretation: nsr hr [address] or t wave abnormalities qrs 105 qtc 432 Discharge Plan Discharge Patient Disposition: Home Clinical Impression: Cholelithiasis, Biliary colic Condition: Stable Prescriptions: New hydrocodone-acetaminophen 5-325 mg tablet 1 tab PO Q6H PRN (Reason: pain) Qty: 14 0RF ondansetron 4 mg tablet,disintegrating 4 mg PO Q6H PRN (Reason: nausea and vomiting) Qty: 14 0RF No Action bupivacaine (PF) 0.25 % (2.5 mg/mL) solution 1 ml intra-articular ONCE Qty: 1 0RF hydrocodone-acetaminophen 7.5-325 mg tablet 1 tab PO Q8H PRN (Reason: pain) 7 Days Qty: 21 0RF venlafaxine 150 mg capsule,extended release 24hr 150 mg PO DAILY indomethacin 50 mg capsule 50 mg PO BID docusate sodium 100 mg capsule 100 mg PO BID PRN potassium chloride 20 mEq tablet extended release 20 meq PO DAILY aspirin 325 mg tablet 325 mg PO DAILY Qty: 30 11RF atorvastatin 10 mg tablet 10 mg PO DAILY Qty: 90 2RF losartan 100 mg tablet 100 mg PO DAILY Qty: 90 2RF sildenafil [Viagra] 100 mg tablet 100 mg PO DAILY PRN (Reason: sexual activity) Qty: 14 1RF Rx Instructions: administer 30 minutes to 4 hours before activity nifedipine 90 mg tablet extended release 90 mg PO DAILY Qty: 90 3RF Discharge Orders: Discharge ED (Routine); Ordered 07/26/23 Ordered By: Jessica Cam Referrals: Vaibhav Truong MD [Physician] - 1-3 days Davin Roe MD [Primary Care Provider] - Discharge Diet: Advance as tolerated Discharge Activity: Resume usual activity Patient Instructions: Biliary Colic (ED), Gallstones (ED), Abdominal Pain (ED), Opioid Safety Coding Level of Care Code ED Link Wire Fabric Machine Operator for Linda Weinberg
[2023-07-26 04:27] LABS: Basophils # 0.1 10^3/uL (0.0-0.1); Basophils % 1.2 %; Eosinophils # 0.5 10^3/uL (0.0-0.8); Hematocrit 39.1 % (37-53); Lymphocytes # 3.2 10^3/uL (0.8-4.8); Lymphocytes % 36.1 %; Mean Corpuscular HGB Conc 34.5 g/dL (30-55); Mean Corpuscular Hemoglobin 29.6 pg (27-33); Mean Corpuscular Volume 85.7 fl (82-101); Mean Platelet Volume 10.1 fL (7.4-10.4); Monocytes # 1.1 10^3/uL (0.2-0.9); Monocytes % 12.4 %; Neutrophils # 4.04 10^3/uL (1.8-7.7); Neutrophils % 45.1 %; Nucleated Red Blood Cells % 0 %; Platelet Count 304 10^3/cmm (157-399); Red Blood Count 4.56 10^6/uL (3.85-5.65); Red Cell Distribution Width 13.6 % (12.1-15.1); White Blood Count 8.97 10^3/uL (3.29-11.43)
[2023-07-26] MEDS: ondansetron 2 mg/ML SDV 2 mL 4 MG IVP (04:28)
[2023-07-26 04:29] VITALS: RESP 16
[2023-07-26] MEDS: morphine 4 mg/mL SDV 1 mL IVP (04:29)
[2023-07-26 04:38] LABS: INR 1.13 (0.8-1.2)
[2023-07-26 04:45] LABS: Troponin(5th) Baseline 13 ng/L (0-15)
[2023-07-26 04:46] LABS: Alanine Aminotransferase 17 U/L (0-41); Albumin Level 4.4 g/dL (3.5-5.2); Alkaline Phosphatase 94 U/L (40-130); Anion Gap 11.3 (5-19); Aspartate Amino Transferase 15 U/L (0-40); Blood Urea Nitrogen 20 mg/dL (8-23); Carbon Dioxide 31 mmol/L (22-29); Chloride 102 mmol/L (98-107); Globulin 2.9 g/dL (1.3-4.6); Glomerular Filtration Rate 85.2 mL/min (90-130); Glucose 100 mg/dL (65-115); Lipase 54 U/L (13-60); Osmolality Calculated 295 mOsm/kg (285-295); Potassium 3.3 mmol/L (3.5-5.1); Sodium 141 mmol/L (136-145); Total Bilirubin 0.3 mg/dL (0.15-1.2); Total Protein 7.3 g/dL (6.6-8.7)
[2023-07-26 05:05] VITALS: BP 134/90; PULSE 86; RESP 16; O2SAT 90
--- NOTE | 2023-07-26 07:56 | DCPLANNER ---
Addendum entered by Love Sevilla 07/28/23 11:41: Patient has a follow up appointment scheduled for July at 1:[address] Lainez at general surgery. Original Note: staffing branch manager had massage to schedule a follow up appointment for patient with general surgery. staffing branch manager sent patients information to the front office staff at general surgery. Patients information will be printed and reviewed. Clinic will call patient with appointment information.
== END 2023-07-26 05:13 | disposition home or self-care (01) ==
PROVIDERS: Emergency Provider Emergency Medicine; PCP Family Medicine
DX: K80.20 Calculus of gallbladder without cholecystitis without obstruction (principal); Z79.82 Long term (current) use of aspirin; I10 Essential (primary) hypertension; Z86.73 Personal history of transient ischemic attack (TIA), and cerebral infarction without residual deficits
CPT/HCPCS: 71045; 76705; 80053; 83690; 84484; 85025; 85610; 93005; 96374; 96375; 99285; J2270; J2405

== ENCOUNTER 2023-08-30 05:46 | Day surgery (SDC) | payer OTHER, MEDICAID, SELFPAY ==
[2023-08-30] VITALS (12 sets, daily range): BP systolic 123–178; BP diastolic 77–115; PULSE 80–92; RESP 10–20; TEMP 36.1–36.6; O2SAT 92–99; BMI 25.7
[2023-08-30] MEDS: sodium chloride 0.9% 1,000 ML 30 ML IV (06:19)
--- NOTE | 2023-08-30 06:27 | P.HPUD_ITS ---
Surgery/Procedure H&P Update DATE OF PROCEDURE: August 30, 2023 DATE H&P PERFORMED: 08/03/23 H&P UPDATE INFORMATION: I have reviewed H&P completed within last 30 days, I have examined patient prior to procedure, No changes to prior documentation and H&P is in [facility] EMR on date indicated PLANNED PROCEDURE: Operation Date: 08/30/23 07:00 Proposed Procedures p 78905 lap too K80.20(Not Applicable) - Vaibhav Truong MD
--- NOTE | 2023-08-30 06:32 | P.ANESASSM_ITS ---
Pre-Anesthetic Assessment Height/Weight: Height 1.8 m Weight 83.915 kg Temp Pulse Resp BP Pulse Ox O2 Del Method 97.3 F L 92 16 156/111 96 Room Air 08/30/23 06:02 08/30/23 06:02 08/30/23 06:02 08/30/23 06:02 08/30/23 06:02 08/30/23 06:22 Operation Date: 08/30/23 07:00 Proposed Procedures p 23938 lap too K80.20(Not Applicable) - Vaibhav Truong MD Familial anesthetic complications: None Was Beta Lyssa taken within 24 hours: N/A Was Clonidine taken within 24 hours: N/A Last intake: Intake Last Liquid Date 08/29/23 Last Liquid Time 21:00 Last Solid Date 08/29/23 Last Solid Time 21:00 Social Tobacco and No alcohol Exam alert, oriented x 3, clear to auscultation bilaterally and regular rate & rhythm Airway Mallampati: Class I Dentition: other (no teeth) Pulmonary Sleep Apnea CV/HEM Hypertension Metabolic Hyperlipidemia Neuropsych Cerebrovascular Accident stroke 2020 Anesthetic Plan ASA status: 3 Anesthesia: General Risk of > 500 ml blood loss (7ml/kg in children): No Medications/Allergies Home Medications Medication Instructions Recorded Confirmed Last Taken Type aspirin 325 mg tablet 325 mg PO DAILY #30 tabs 11/16/20 08/29/23 08/26/23 Rx atorvastatin 10 mg tablet 10 mg PO DAILY #90 tabs 03/23/22 08/29/23 08/28/23 Rx sildenafil 100 mg tablet (Viagra) 100 mg PO DAILY PRN sexual 07/04/23 08/29/23 Unknown Rx activity #14 tabs docusate sodium 100 mg capsule 100 mg PO BID PRN Constipation 07/20/23 08/29/23 08/28/23 History indomethacin 50 mg capsule 50 mg PO BID 07/20/23 08/29/23 08/28/23 History potassium chloride 20 mEq 20 meq PO DAILY 07/20/23 08/29/23 08/28/23 History tablet,extended release venlafaxine 150 mg 150 mg PO DAILY 07/20/23 08/29/23 08/28/23 History capsule,extended release 24 hr nifedipine 90 mg tablet,extended 90 mg PO DAILY #90 tabs 07/25/23 08/29/23 08/28/23 Rx release hydrocodone 5 mg-acetaminophen 325 1 tab PO Q6H PRN pain #14 tabs 07/26/23 08/29/23 Unknown Rx mg tablet ondansetron 4 mg disintegrating 4 mg PO Q6H PRN nausea and 07/26/23 08/29/23 Unknown Rx tablet vomiting #14 tabs pantoprazole 40 mg tablet,delayed 40 mg PO BID 6 weeks #84 tabs 08/03/23 08/29/23 08/28/23 Rx release (Protonix) losartan 100 mg tablet 100 mg PO DAILY #90 tabs 08/22/23 08/29/23 08/28/23 Rx Allergies Allergy/AdvReac Type Severity Reaction Status Date / Time No Known Allergies Allergy Verified 08/03/23 13:47 Current Medications Generic Name Dose Route Start Last Admin Trade Name Freq PRN Reason Stop Dose Admin Sodium Chloride 1,000 mls @ 30 mls/hr 08/30/23 06:00 08/30/23 06:19 Sodium Chloride 0.9% IV 08/31/23 05:59 30 mls/hr .Q24H ALAINA Administration PFSH Anesthesia Medical History Cervical disc disease with myelopathy Depression Hypercholesteremia Hypertension Lacunar stroke of right subthalamic region EKTA (obstructive sleep apnea) Palpitations Post laminectomy syndrome Status migrainosus Family History Mother Hypertension Brother Hypotension Social History Smoking and tobacco status: never smoked Second hand smoke exposure: No Alcohol intake: current Substance/Drug Use: never Marital status: Data Anesthesia Cardiac Studies: 2 Holter Monitor 12/03/19
[2023-08-30 06:55] LABS: Anion Gap 12.9 (5-19); Blood Urea Nitrogen 24 mg/dL (8-23); Calcium 8.4 mg/dL (8.5-10.5); Carbon Dioxide 28 mmol/L (22-29); Chloride 102 mmol/L (98-107); Glomerular Filtration Rate 75.5 mL/min (90-130); Glucose 101 mg/dL (65-115); Osmolality Calculated 294 mOsm/kg (285-295); Sodium 140 mmol/L (136-145)
[2023-08-30 06:58] LABS: Potassium 2.9 mmol/L (3.5-5.1)
[2023-08-30] MEDS: ceFAZolin 2,000 MG in sodium chloride 0.9% (plus) 50 ML 100 MG IV (06:59)
[2023-08-30] MEDS: lidocaine-epi 1% 20 mL INJ INJECTION (07:33)
[2023-08-30] MEDS: BUPivacaine 0.25% INJ 10 mL INJECTION (07:34)
--- NOTE | 2023-08-30 08:17 | PM.OP ---
Operative Report Date of procedure: August 30, 2023 Pre-op diagnosis: Symptomatic cholelithiasis Post-op diagnosis: Same Procedure done: Laparoscopic cholecystectomy Specimens removed/disposition: Gallbladder Surgeon: Vaibhav Truong MD Home Appliance Washing Machine Mechanic: SRUTHI OR Staff Estimated blood loss: 10 Complications: none Findings: Normal biliary anatomy Brief History: 63-year-old male who presented to my clinic with symptoms concerning for symptomatic cholelithiasis, after a discussion of the risk and benefits patient was taken to the OR for laparoscopic cholecystectomy. Procedure: Patient was brought into the OR, placed in the supine position, general esthesia was given. Timeout was conducted. The abdomen was prepped and draped in the usual sterile fashion. The abdomen was entered via infraumbilical incision with an open technique, Theodore trocar was placed and fixed to the fascia with 0 Vicryl. Initial pneumoperitoneum was achieved and no evidence of visceral injury was noted upon entry, additional 5 mm trocars were placed in the epigastric right upper quadrant and right flank position. The gallbladder was retracted cephalad and the infundibulum was retracted. In an inferolateral direction to expose the hepatocystic triangle. The peritoneum anterior to the cystic duct was then open this opening was carried medial and lateral to the edges of the liver and then on the sides of the gallbladder to allow for better exposure. The cystic duct and artery were then carefully dissected with blunt dissection using [place]. The lower third of the gallbladder was elevated from the liver bed. Critical view of safety was achieved. The cystic duct and artery were then double clipped proximally and single clipped distally and transected. The gallbladder was then removed from the liver bed using electrocautery. Hemostasis was verified, clips also were noted to be in appropriate position. The specimen was retrieved via umbilical incision. The umbilical trocar site was then closed with #0 Vicryl using a Theodore-Manny suture passer. Pneumoperitoneum was recreated and trocars were removed. The skin of the wounds were closed using #4-0 Monocryl. Dermabond was applied. At the end of the procedure all counts were correct. Patient was extubated and transferred to the PACU in stable condition.
[2023-08-30] MEDS: hyDRALAzine 20 mg/mL INJ 1 mL (08:36)
--- NOTE | 2023-08-30 09:18 | ECG_ITS ---
[facility] Test Date: 2023-08-30 Pat Name: Elieser Griffin Department: Room: Gender: Male Perianesthesia Manager: : 1960 Requested By: Letha Frias Order Number: [id number] Tao MD: Macie Taylor M.D. Measurements Intervals [place] Rate: 70 P: 16 ME: 222 QRS: -17 QRSD: 109 T: 29 QT: 426 QTc: 460 Interpretive Statements SINUS RHYTHM WITH FIRST DEGREE AV BLOCK VOLTAGE CRITERIA FOR LVH [MEETS CRITERIA IN ONE OF: R(aVL), S(V1), R(V5), R(V5/V6)+S(V1)] NONSPECIFIC T-WAVE ABNORMALITY Compared to ECG 07/26/2023 04:16:13 First degree AV block now present T-wave abnormality still present Electronically Signed On 08-30-2023 10:03:51 CDT by Mcaie Taylor M.D. [id number]
[2023-08-30] MEDS: oxyCODONE 5 mg IR Tab/Cap PO (09:43)
--- NOTE | 2023-08-30 09:50 | ANE.PACU2 ---
Inpatient post-anesthesia follow up: Airway intact: Yes Vital signs: Temperature 97.8 F Pulse Rate 85 Respiratory Rate 17 Blood Pressure 143/101 Pulse Oximetry 94 Oxygen Delivery Me thod Room Air Oxygen Flow Rate 6 Fraction of Inspir ed Oxygen Hydration adequate: Yes Nausea and vomiting: No Pain level: 1 Mental status: Baseline
[2023-08-30 10:53] LABS: Anion Gap 13.3 (5-19); Blood Urea Nitrogen 26 mg/dL (8-23); Carbon Dioxide 28 mmol/L (22-29); Chloride 102 mmol/L (98-107); Glomerular Filtration Rate 55.8 mL/min (90-130); Glucose 160 mg/dL (65-115); Osmolality Calculated 298 mOsm/kg (285-295); Potassium 3.3 mmol/L (3.5-5.1); Sodium 140 mmol/L (136-145)
== END 2023-08-30 12:09 | disposition home or self-care (01) ==
PROVIDERS: Anesthesiology; PCP Family Medicine; Visit Provider Surgery
PROC: 0FT44ZZ Resection of Gallbladder, Percutaneous Endoscopic Approach (ICD-10-PCS; CPT 47562; principal; 2023-08-30 07:00)
DX: K80.10 Calculus of gallbladder with chronic cholecystitis without obstruction (principal); I10 Essential (primary) hypertension; E78.5 Hyperlipidemia, unspecified; Z86.73 Personal history of transient ischemic attack (TIA), and cerebral infarction without residual deficits; Z79.82 Long term (current) use of aspirin; G47.33 Obstructive sleep apnea (adult) (pediatric)
CPT/HCPCS: 47562; 80048; 88304; 93005; J0131; J0360; J0690; J1100; J2371; J2405; J2704; J2710; J3010; J3490; J7030

== ENCOUNTER → 2023-09-06 09:29 | Outpatient (BNVA) | payer OTHER, MEDICAID, SELFPAY | PROVIDERS: PCP Family Medicine; Visit Provider Family Medicine | DX: I10 Essential (primary) hypertension (principal); E83.42 Hypomagnesemia; Z09 Encounter for follow-up examination after completed treatment for conditions other than malignant neoplasm; M96.1 Postlaminectomy syndrome, not elsewhere classified; E87.6 Hypokalemia | CPT/HCPCS: 80048; 83735 ==

== ENCOUNTER 2024-01-22 15:31 | Outpatient (CLI) | payer OTHER, MEDICAID, SELFPAY ==
--- NOTE | 2024-01-22 15:43 | XRR_ITS ---
PROCEDURE INFORMATION: Exam: XR Left Elbow Exam date and time: 01/22/2024 3:47 PM Age: 63 years old Clinical indication: Pain; Prior surgery; Surgery date: 6+ months; Surgery type: Left elbow years ago; Additional info: Worsening pain recent weeks / trauma years ago TECHNIQUE: Imaging protocol: Radiologic exam of the left elbow. Views: 3 or more views. COMPARISON: MR shoulder LT wo/w con [id number] 02/16/2022 3:52 PM FINDINGS: Bones/joints: Mild arthritis. Nothing obviously acute. Soft tissues: Otherwise, unremarkable. XR/XR elbow LT min 3V* [id number] IMPRESSION: Mild arthritis. Nothing obviously acute.
== END 2024-01-22 15:32 | disposition home or self-care (01) ==
LOC: RAD 15:32
PROVIDERS: PCP Family Medicine; Visit Provider Family Medicine
DX: M19.022 Primary osteoarthritis, left elbow (principal); Z90.49 Acquired absence of other specified parts of digestive tract
CPT/HCPCS: 73080

== ENCOUNTER → 2024-02-29 09:46 | Outpatient (BNVA) | payer OTHER, MEDICAID, SELFPAY | PROVIDERS: PCP Family Medicine; Visit Provider Family Medicine | DX: I10 Essential (primary) hypertension (principal); E87.6 Hypokalemia; F32.9 Major depressive disorder, single episode, unspecified; K29.00 Acute gastritis without bleeding; M96.1 Postlaminectomy syndrome, not elsewhere classified | CPT/HCPCS: 80053 ==

== ENCOUNTER 2024-03-31 10:56 | Emergency (ER) | payer OTHER, MEDICAID, SELFPAY ==
[2024-03-31 11:13] VITALS: BP 127/82; PULSE 92; RESP 16; TEMP 36.6; O2SAT 94
--- NOTE | 2024-03-31 12:39 | XRR_ITS ---
PROCEDURE INFORMATION: Exam: XR Lumbosacral Spine Exam date and time: 03/31/2024 12:47 PM Age: 63 years old Clinical indication: Lumbago with sciatica; Left; Prior surgery; Surgery date: 6+ months; Surgery type: Lumbar discectomy; Patient HX: Mid/lower back pain after chiropractic adjustment TECHNIQUE: Imaging protocol: Radiologic exam of the lumbosacral spine. Views: 2 or 3 views. COMPARISON: No relevant prior studies available. FINDINGS: Bones/joints: There are 5 [id number] lumbar-type vertebral bodies designated L1 through L5. Findings consistent with limbus vertebra at L3 and L4 appearing unchanged. Minimal chronic appearing anterior wedge compression deformity of the L1 vertebral body, unchanged. Intervertebral disc space heights are preserved and there is no subluxation identified. Very minimal levoconvex curvature is noted which may be positional or related to spasm. Soft tissues: No acute soft tissue abnormality identified. Surgical clips are present in the right upper quadrant. XR/XR lumbar spine 2-3V* [id number] IMPRESSION: No acute osseous abnormality identified.
--- NOTE | 2024-03-31 12:39 | XRR_ITS ---
PROCEDURE INFORMATION: Exam: XR Thoracic Spine Exam date and time: 03/31/2024 12:47 PM Age: 63 years old Clinical indication: Pain in thoracic spine; Patient HX: Mid/lower back pain after chiropractic adjustment TECHNIQUE: Imaging protocol: Radiologic exam of the thoracic spine. Views: 3 views. COMPARISON: CR XR chest 1V portable [id number] 07/26/2023 4:49 AM FINDINGS: Bones/joints: Mild thoracic kyphosis. Minimal chronic appearing loss of height of several mid-lower thoracic vertebral bodies appears grossly similar to 04/09/2021. There is no acute appearing fracture or subluxation evident. Soft tissues: No paraspinous soft tissue swelling identified. XR/XR thoracic spine 3V* [id number] IMPRESSION: No acute osseous abnormality noted.
--- NOTE | 2024-03-31 12:48 | ED_ITS ---
HPI - Back Pain/Injury General: Chief Complaint: Back Pain/Injury Stated Complaint: BACK PAINS Time Seen by Provider: 03/31/24 12:34 History of Present Illness: 63-year-old man who presents to the [facility] room with mid back pain. He says this started after he went to a chiropractor a few days back. He is having severe pain base of his thoracic spine or upper lumbar spine. He is tender to palpation in that area. Has some bony tenderness. No saddle numbness, no urinary retention or incontinence, no focal motor deficit, no sensory deficit. no recent fever. no cough. no shortness of breath. no chest pain. no abdominal pain. no nausea or vomiting. no dysuria. no altered mental status. no edema. Review of Systems Narrative: Constitutional symptoms: Negative except as documented in HPI. Skin symptoms: Negative except as documented in HPI. Eye symptoms: Negative except as documented in HPI. ENMT symptoms: Negative except as documented in HPI. Respiratory symptoms: Negative except as documented in HPI. Cardiovascular symptoms: Negative except as documented in HPI. Gastrointestinal symptoms: Negative except as documented in HPI. Genitourinary symptoms: Negative except as documented in HPI. Musculoskeletal symptoms: Negative except as documented in HPI. Neurologic symptoms: Negative except as documented in HPI. Psychiatric symptoms: Negative except as documented in HPI. Endocrine symptoms: Negative except as documented in HPI. PFS ED PFSH: Medical History (Updated 03/31/24 @ 13:35 by Radha Navarrete MD) Erectile dysfunction Hypokalemia Post laminectomy syndrome Hypercholesteremia Cervical disc disease with myelopathy EKTA (obstructive sleep apnea) Hypertension Palpitations Lacunar stroke of right subthalamic region Depression Status migrainosus Surgical History (Updated 09/26/23 @ 09:32 by Vaibhav Truong MD) Hx laparoscopic cholecystectomy 08/30/23 Dr Truong Family History Mother Hypertension Brother Hypotension Social History Smoking and tobacco/nicotine status: never used tobacco/nicotine Second hand smoke exposure: No Alcohol intake: current Substance/Drug Use: never Marital status: Physical Exam Narrative: EXAM NARRATIVE: General: Alert, no acute distress. Head: Normocephalic Neck: Trachea midline Eye: Extraocular movements are intact. Ears, nose, mouth and throat: Oral mucosa moist Respiratory: Respirations are non-labored Musculoskeletal: Normal ROM Back: patient has some tenderness at about T12 or L1. This is bony tenderness. No step-offs. Also some paraspinal muscle tenderness. Neurological: Alert and oriented to person, place, time, and situation, No focal neurological deficit observed. Psychiatric: Cooperative, appropriate mood & affect. Course Vital Signs: Vital signs: Vital Signs Temperature 97.9 F 03/31/24 11:13 Pulse Rate 92 03/31/24 11:13 Respiratory Rate 16 03/31/24 11:13 Blood Pressure 127/82 03/31/24 11:13 Pulse Oximetry 94 03/31/24 11:13 Oxygen Delivery Me thod Room Air 03/31/24 11:13 MDM - Back Pain/Injury Medical Decision Making X-ray of the thoracic and lumbar spine were ordered to rule out any kind of compression or other types of fractures. X-ray of the thoracic spine: No fracture. Good alignment. No step-offs. This was reviewed and interpreted by myself the emergency room physician. I also reviewed the radiologist report. X-ray of the lumbar spine: No fracture. Good alignment. No step-offs. This was reviewed and interpreted by myself the emergency room physician. Assessment and plan: Back strain - Discharged home - Discussed plan with patient. Answered any questions. - Evaluation and treatment of this problem were appropriate in the emergency setting. XR interpretation done by ED provider, pending radiology final review Discharge Plan Discharge Patient Disposition: Home Clinical Impression: Strain of lumbar region Condition: Stable Prescriptions: New prednisone 20 mg tablet 60 mg PO DAILY Qty: 20 0RF Rx Instructions: 3 tabs (60 mg) x 3 days. 2 tabs (40 mg) x 3 days. 1 tab (20 mg) x 3 days. 1/2 tab (10 mg) x 4 days tramadol 50 mg tablet 50 mg PO Q8H PRN (Reason: pain) Qty: 20 0RF diclofenac sodium 50 mg tablet,delayed release (DR/EC) 50 mg PO Q12H Qty: 20 0RF No Action potassium chloride 20 mEq tablet extended release 20 meq PO DAILY 60 Days Qty: 120 5RF polyethylene glycol 3350 [Miralax] 17 gram powder in packet 17 g PO DAILY Qty: 30 1RF metoclopramide HCl [Reglan] 10 mg tablet 10 mg PO .BEFORE MEAL PRN (Reason: nausea and vomiting) Qty: 20 0RF diclofenac sodium [Voltaren Arthritis Pain] 1 % gel 2 g topical QID Qty: 100 0RF Rx Instructions: apply to single elbow, wrist or hand; for hand includes palm/fingers/back of hand prednisone 20 mg tablet 20 mg PO .COMPLEX Qty: 20 0RF Rx Instructions: 4 tabs day 1, decrease by one half tablet daily until gone. meloxicam 15 mg tablet 15 mg PO DAILY Qty: 30 3RF nifedipine 60 mg tablet extended release 60 mg PO DAILY Qty: 30 5RF hydrochlorothiazide 12.5 mg tablet 12.5 mg PO DAILY Qty: 30 5RF aspirin 325 mg tablet 325 mg PO DAILY Qty: 30 11RF atorvastatin 10 mg tablet 10 mg PO DAILY Qty: 90 2RF losartan 100 mg tablet 100 mg PO DAILY Qty: 90 3RF buspirone 10 mg tablet 10 mg PO BID Qty: 60 3RF Discharge Orders: Discharge ED (Routine); Ordered 03/31/24 Ordered By: Radha Navarrete Referrals: Davin Roe MD [Primary Care Provider] - (You have been screened and evaluated and felt safe for discharge. Health conditions do change or evolve sometimes and as such it is important that you follow up with your Primary Doctor to be re checked, 3-5 days is a general good time frame for follow up. You are always welcome to return to the ED for re assessment if your symptoms are worsening or you have new concerns) Discharge Diet: Usual diet Discharge Activity: Increase activity as tolerated Patient Instructions: Low Back Strain (ED) Coding Level of Care Code ED Hair And Makeup Designer for Linda Weinberg
[2024-03-31] MEDS: dexamethasone 10 mg/mL INJ IM (13:15)
[2024-03-31] MEDS: ketorolac 60 mg/2 mL INJ IM (13:15)
[2024-03-31 13:47] VITALS: BP 124/84; PULSE 89; RESP 16; TEMP 36.6; O2SAT 95
== END 2024-03-31 13:49 | disposition home or self-care (01) ==
PROVIDERS: Emergency Provider Emergency Medicine; PCP Family Medicine
DX: S39.012A Strain of muscle, fascia and tendon of lower back, initial encounter (principal); Z79.82 Long term (current) use of aspirin; I10 Essential (primary) hypertension; Z86.73 Personal history of transient ischemic attack (TIA), and cerebral infarction without residual deficits; X58.XXXA Exposure to other specified factors, initial encounter
CPT/HCPCS: 72072; 72100; 96372; 99284; J1100; J1885

== ENCOUNTER 2024-04-14 20:35 | Emergency (ER) | payer OTHER, MEDICAID, SELFPAY ==
--- NOTE | 2024-04-14 20:39 | XRR_ITS ---
PROCEDURE INFORMATION: Exam: XR Left Hand Exam date and time: 04/14/2024 9:02 PM Age: 63 years old Clinical indication: Injury or trauma; Patient HX: Crushing injury to tip of left index finger TECHNIQUE: Imaging protocol: Radiologic exam of the left hand. Views: 3 or more views. COMPARISON: No relevant prior studies available. FINDINGS: Bones/joints: Second distal phalangeal comminuted mildly displaced fracture with overlying bandage material. Fifth metacarpal chronic appearing bony deformity. Soft tissues: Normal. XR/XR hand LT min 3V* [id number] IMPRESSION: 1. Second distal phalangeal comminuted mildly displaced fracture with overlying bandage material. 2. Fifth metacarpal chronic appearing bony deformity.
[2024-04-14 20:58] VITALS: BP 133/78; PULSE 93; RESP 16; TEMP 36.8; O2SAT 96; BMI 26.4
--- NOTE | 2024-04-14 22:29 | W.ED.EXTPRO ---
HPI - Extremity Problem General: Chief complaint: Extremity Injury, Upper Stated complaint: left hand injury Time Seen by Provider: 04/14/24 22:26 History of Present Illness: 63-year-old male patient comes in today for complaints of injury to his left index finger. Patient was trying to straighten his bumper with a hammer and accidentally struck his finger with a hammer. Patient has a laceration extending across the dorsal aspect of the hand involving the proximal nailbed. Review of Systems General: Reports: 10 or more systems reviewed and unremarkable except in HPI and below PFSH ED PFSH: Medical History (Updated 04/14/24 @ 23:16 by LYNDON Garcia) Erectile dysfunction Hypokalemia Post laminectomy syndrome Hypercholesteremia Cervical disc disease with myelopathy EKTA (obstructive sleep apnea) Hypertension Palpitations Lacunar stroke of right subthalamic region Depression Status migrainosus Surgical History (Updated 09/26/23 @ 09:32 by Vaibhav Truong MD) Hx laparoscopic cholecystectomy 08/30/23 Dr Truong Family History Mother Hypertension Brother Hypotension Social History Smoking and tobacco/nicotine status: never used tobacco/nicotine Second hand smoke exposure: No Alcohol intake: current Substance/Drug Use: never Marital status: Physical Exam Const: COMMON NORMALS: alert HENMT: COMMON NORMALS: normocephalic HEAD & SCALP: normocephalic Neck/C-Spine: COMMON NORMALS: full ROM Resp: COMMON NORMALS: normal respiratory effort Cardio: COMMON NORMALS: regular rate RATE: regular rate Back/Pelvis: COMMON NORMALS: thoracic and lumbar spine normal to inspection Extremity: LEFT UPPER EXTREMITY: Yes hand & digits (Distal finger laceration. Cap refills intact.) Left hand and digits: Yes inspection, Yes palpation and Yes ROM Neuro: SENSORIUM/ORIENTATION: Yes alert Skin: TRAUMA: laceration (Distal left index finger) Procedures Laceration Laceration 1: Site: hand Side (If applicable): left Size (cm): 2 Description: irregular Local Anesthetic: lidocaine 1% and with epi Amount of anesthesia used (mL): 4 Pre-repair: wound explored and irrigated extensively Skin layer closed with: nylon Size (cm): 4-0 Number of sutures: 5 Course Vital Signs: Vital signs: Vital Signs Temperature 98.3 F 04/14/24 20:58 Pulse Rate 92 04/14/24 23:33 Respiratory Rate 20 H 04/14/24 23:33 Blood Pressure 139/89 04/14/24 23:33 Pulse Oximetry 97 04/14/24 23:33 Oxygen Delivery Me thod Room Air 04/14/24 22:32 MDM - Extremity (Nontraumatic) Medical Decision Making 63-year-old male patient comes in today for injury to the distal left index finger. On exam we note a laceration involving the nailbed of the left index finger. Differential diagnosis includes fracture, foreign body, laceration, need for prophylaxis tetanus, need for prophylaxis antibiotic. X-ray noted comminuted fracture of the distal phalanx of the left index finger. Wound was thoroughly irrigated and approximated and secured with 4-0 nylon. Patient was given a gram of Ancef. Patient be continued on Augmentin. Patient will be recommended to follow-up with orthopedics for further evaluation and treatment. Patient reports understanding of care plan need for follow-up or return to the ER. Lab Data Radiology Impressions Hand X-Ray 04/14/24 20:39 IMPRESSION: 1. Second distal phalangeal comminuted mildly displaced fracture with overlying bandage material. 2. Fifth metacarpal chronic appearing bony deformity. All radiology interpretation(s) finalized by discharge Discharge Plan Discharge Patient Disposition: Home Clinical Impression: Fracture of distal phalanx of finger of left hand Laceration of finger Qualifiers: Encounter type: initial encounter Finger: index finger Damage to nail status: with damage Foreign body presence: without foreign body Laterality: left Qualified Code(s): S61.311A - Laceration without foreign body of left index finger with damage to nail, initial encounter Condition: Stable Prescriptions: New amoxicillin-pot clavulanate 875-125 mg tablet 1 tab PO BID Qty: 20 0RF hydrocodone-acetaminophen 5-325 mg tablet 1 tab PO Q6H PRN (Reason: pain) Qty: 7 0RF No Action potassium chloride 20 mEq tablet extended release 20 meq PO DAILY 60 Days Qty: 120 5RF polyethylene glycol 3350 [Miralax] 17 gram powder in packet 17 g PO DAILY Qty: 30 1RF metoclopramide HCl [Reglan] 10 mg tablet 10 mg PO .BEFORE MEAL PRN (Reason: nausea and vomiting) Qty: 20 0RF diclofenac sodium [Voltaren Arthritis Pain] 1 % gel 2 g topical QID Qty: 100 0RF Rx Instructions: apply to single elbow, wrist or hand; for hand includes palm/fingers/back of hand prednisone 20 mg tablet 20 mg PO .COMPLEX Qty: 20 0RF Rx Instructions: 4 tabs day 1, decrease by one half tablet daily until gone. meloxicam 15 mg tablet 15 mg PO DAILY Qty: 30 3RF nifedipine 60 mg tablet extended release 60 mg PO DAILY Qty: 30 5RF hydrochlorothiazide 12.5 mg tablet 12.5 mg PO DAILY Qty: 30 5RF aspirin 325 mg tablet 325 mg PO DAILY Qty: 30 11RF atorvastatin 10 mg tablet 10 mg PO DAILY Qty: 90 2RF losartan 100 mg tablet 100 mg PO DAILY Qty: 90 3RF buspirone 10 mg tablet 10 mg PO BID Qty: 60 3RF prednisone 20 mg tablet 60 mg PO DAILY Qty: 20 0RF Rx Instructions: 3 tabs (60 mg) x 3 days. 2 tabs (40 mg) x 3 days. 1 tab (20 mg) x 3 days. 1/2 tab (10 mg) x 4 days tramadol 50 mg tablet 50 mg PO Q8H PRN (Reason: pain) Qty: 20 0RF diclofenac sodium 50 mg tablet,delayed release (DR/EC) 50 mg PO Q12H Qty: 20 0RF Discharge Orders: Discharge ED (Routine); Ordered 04/14/24 Ordered By: Kentrell Reid Referrals: Davin Roe MD [Primary Care Provider] - Discharge Diet: Usual diet Discharge Activity: Increase activity as tolerated Patient Instructions: Opioid Safety, Pain Management Activity Restrictions/Additional Instructions: Home and rest. Keep finger clean and dry. Sutures need to come out in 7 days. Follow-up with primary care or orthopedic surgeon for further evaluation and treatment. Return to ED for new concerns. Coding Level of Care Code ED Product Support Analyst for Linda Weinberg
[2024-04-14 22:32] VITALS: PULSE 99; O2SAT 98
[2024-04-14] MEDS: tetanus-dipt-pertussis 0.5 mL SDV IM (22:47)
[2024-04-14] MEDS: lidocaine-epi 2% 20 mL INJ INJECTION (22:50)
[2024-04-14] MEDS: ceFAZolin 1,000 MG in water for injection-sterile 2.5 ML 1 MG IM (23:09)
--- NOTE | 2024-04-14 23:21 | DCPLANNER ---
message sent to ortho for follow up
[2024-04-14 23:33] VITALS: BP 139/89; PULSE 92; RESP 20; O2SAT 97
== END 2024-04-14 23:36 | disposition home or self-care (01) ==
PROVIDERS: Emergency Provider Nurse Practitioner Family; PCP Family Medicine
DX: S61.311A Laceration without foreign body of left index finger with damage to nail, initial encounter (principal); S62.631A Displaced fracture of distal phalanx of left index finger, initial encounter for closed fracture; Z79.82 Long term (current) use of aspirin; I10 Essential (primary) hypertension; Z86.73 Personal history of transient ischemic attack (TIA), and cerebral infarction without residual deficits; W27.8XXA Contact with other nonpowered hand tool, initial encounter; Z23 Encounter for immunization
CPT/HCPCS: 12001; 73130; 90471; 90715; 96372; 99284; J0690

== ENCOUNTER → 2024-04-19 08:34 | Outpatient (BNVA) | payer OTHER, MEDICAID, SELFPAY | PROVIDERS: PCP Family Medicine; Referring Provider Nurse Practitioner Family; Visit Provider Specialist | DX: S62.631A Displaced fracture of distal phalanx of left index finger, initial encounter for closed fracture; S61.311A Laceration without foreign body of left index finger with damage to nail, initial encounter; W22.8XXA Striking against or struck by other objects, initial encounter | CPT/HCPCS: 73130 ==

== ENCOUNTER → 2024-04-24 14:10 | Outpatient (BNVA) | payer OTHER, MEDICAID, SELFPAY | PROVIDERS: PCP Family Medicine; Visit Provider Specialist | DX: S62.631A Displaced fracture of distal phalanx of left index finger, initial encounter for closed fracture; X58.XXXA Exposure to other specified factors, initial encounter | CPT/HCPCS: 73130 ==

== ENCOUNTER → 2024-05-13 13:54 | Outpatient (BNVA) | payer OTHER, MEDICAID, SELFPAY | PROVIDERS: PCP Family Medicine; Visit Provider Specialist | DX: S62.631A Displaced fracture of distal phalanx of left index finger, initial encounter for closed fracture (principal); X58.XXXA Exposure to other specified factors, initial encounter | CPT/HCPCS: 73130 ==

== ENCOUNTER → 2024-06-03 14:53 | Outpatient (BNVA) | payer OTHER, MEDICAID, SELFPAY | PROVIDERS: PCP Family Medicine; Visit Provider Family Medicine | DX: R79.89 Other specified abnormal findings of blood chemistry (principal); M54.2 Cervicalgia; M96.1 Postlaminectomy syndrome, not elsewhere classified | CPT/HCPCS: 84403 ==

== ENCOUNTER 2024-06-18 03:07 | Emergency (ER) | payer OTHER, MEDICAID, SELFPAY ==
[2024-06-18 03:13] VITALS: BP 171/119; PULSE 84; RESP 18; TEMP 36.5; O2SAT 97; BMI 27.0
--- NOTE | 2024-06-18 03:40 | W.ED.BACK ---
HPI - Back Pain/Injury General: Chief Complaint: Back Pain/Injury Stated Complaint: Upper back pain Time Seen by Provider: 06/18/24 03:19 History of Present Illness: Patient presents to the ER with complaints of middle back pain. He stated he has pain every day but tonight it was worse. Patient has not taken anything for pain. Patient has not not traumatize her overexerted or strained his back that he knows of. This has been going on for some time. Patient says he was seen back several months ago in the ER and also seen his family doctor about this and he is in the process of getting set up with a pain management doctor. He said last time they gave him a couple shots and some pills to go home on and that did not cure him but did help. Review of Systems General: Reports: 10 or more systems reviewed and unremarkable except in HPI and below PFSH ED PFSH: Medical History Erectile dysfunction Hypokalemia Post laminectomy syndrome Hypercholesteremia Cervical disc disease with myelopathy EKTA (obstructive sleep apnea) Hypertension Palpitations Lacunar stroke of right subthalamic region Depression Status migrainosus Surgical History Hx laparoscopic cholecystectomy 08/30/23 Dr Truong Family History Mother Hypertension Brother Hypotension Social History Smoking and tobacco/nicotine status: never used tobacco/nicotine Second hand smoke exposure: No Alcohol intake: current Substance/Drug Use: never Marital status: Physical Exam Const: COMMON NORMALS: no acute distress, average body habitus, patient oriented x3, no limitations, healthy appearing, alert and well nourished HENMT: COMMON NORMALS: normocephalic, atraumatic, hearing grossly normal bilaterally, external ears normal, Normal external nose present and moist oral mucous membranes HEAD & SCALP: normocephalic and atraumatic NOSE: Normal external nose present EXTERNAL EAR: Yes external ears normal Neck/C-Spine: COMMON NORMALS: no JVD Chest: COMMONS NORMALS: normal inspection of the chest and normal palpation of entire chest wall Resp: COMMON NORMALS: normal respiratory effort, No retractions, No use of accessory muscles and clear to auscultation bilaterally AUSCULTATION: clear to auscultation bilaterally Cardio: COMMON NORMALS: no JVD, regular rate, regular rhythm, S1 normal heart sound present, S2 normal heart sound present, No gallops present (Cardio), No clicks present (Cardio), No murmurs present (Cardio) and No rub (Cardio) RATE: regular rate RHYTHM: regular rhythm HEART SOUNDS: S1 normal heart sound present and S2 normal heart sound present GI: COMMON NORMALS: Normal to inspection, nondistended, normoactive bowel sounds present, Soft to palpation, non-tender, No hepatosplenomegaly present and no masses PALPATION: Yes Soft to palpation and Yes No hepatosplenomegaly present : COMMON NORMALS: Yes no CVA tenderness BLADDER/KIDNEY EXAM: Yes no CVA tenderness Back/Pelvis: COMMON NORMALS: no CVA tenderness and thoracic and lumbar spine normal to inspection; negative for no thoracic nor lumbar tenderness (Tender to palpation in the upper lumbar lower thoracic area.) Neuro: COMMON NORMALS: patient oriented x3 SENSORIUM/ORIENTATION: Yes alert Course Vital Signs: Vital signs: Vital Signs Temperature 97.7 F 06/18/24 03:13 Pulse Rate 83 06/18/24 04:03 Respiratory Rate 18 06/18/24 04:03 Blood Pressure 171/119 06/18/24 04:03 Pulse Oximetry 97 06/18/24 04:03 Oxygen Delivery Me thod Room Air 06/18/24 03:46 MDM - Back Pain/Injury Medical Decision Making Patient with any trauma complains of back pain. Medicine was given 10 of Decadron 60 of Toradol as well as prescriptions for tramadol prednisone and diclofenac. Patient is to follow-up with his PCP within next 7 days. Medical Records I reviewed the patient's medical records. Labs I reviewed the patient's lab results. No radiology studies performed this visit Discharge Plan Discharge Patient Disposition: Home Clinical Impression: Back pain Qualifiers: Chronicity: chronic Back pain laterality: bilateral Sciatica presence: without sciatica Condition: Stable Prescriptions: New prednisone 50 mg tablet 50 mg PO DAILY Qty: 5 0RF diclofenac sodium 50 mg tablet,delayed release (DR/EC) 50 mg PO Q12H Qty: 20 0RF tramadol 50 mg tablet 50 mg PO Q8H PRN (Reason: pain) Qty: 14 0RF Discontinued diclofenac sodium 50 mg tablet,delayed release (DR/EC) 50 mg PO Q12H Qty: 60 1RF prednisone 20 mg tablet 60 mg PO DAILY Qty: 20 0RF Rx Instructions: 3 tabs (60 mg) x 3 days. 2 tabs (40 mg) x 3 days. 1 tab (20 mg) x 3 days. 1/2 tab (10 mg) x 4 days No Action potassium chloride 20 mEq tablet extended release 20 meq PO DAILY 60 Days Qty: 120 5RF polyethylene glycol 3350 [Miralax] 17 gram powder in packet 17 g PO DAILY Qty: 30 1RF metoclopramide HCl [Reglan] 10 mg tablet 10 mg PO .BEFORE MEAL PRN (Reason: nausea and vomiting) Qty: 20 0RF diclofenac sodium [Voltaren Arthritis Pain] 1 % gel 2 g topical QID Qty: 100 0RF Rx Instructions: apply to single elbow, wrist or hand; for hand includes palm/fingers/back of hand nifedipine 60 mg tablet extended release 60 mg PO DAILY Qty: 30 5RF hydrochlorothiazide 12.5 mg tablet 12.5 mg PO DAILY Qty: 30 5RF aspirin 325 mg tablet 325 mg PO DAILY Qty: 30 11RF atorvastatin 10 mg tablet 10 mg PO DAILY Qty: 90 2RF losartan 100 mg tablet 100 mg PO DAILY Qty: 90 3RF buspirone 10 mg tablet 10 mg PO BID Qty: 60 3RF meloxicam 15 mg tablet 15 mg PO DAILY Qty: 30 8RF amoxicillin-pot clavulanate 875-125 mg tablet 1 tab PO BID Qty: 20 0RF hydrocodone-acetaminophen 5-325 mg tablet 1 tab PO Q6H PRN (Reason: pain) Qty: 7 0RF tramadol 50 mg tablet 50 mg PO Q8H PRN (Reason: pain) Qty: 20 0RF Discharge Orders: Discharge ED (Routine); Ordered 06/18/24 Ordered By: Jeffery Long Referrals: Davin Roe MD [Primary Care Provider] - 1 week Patient Instructions: Back Pain (ED), Opioid Safety, Pain Management Activity Restrictions/Additional Instructions: Please take all medicine as prescribed. Please follow-up with your family practice physician with a neck 7 to 10 days for further evaluation and treatment. Thank you for choosing [facility] for your healthcare needs today. Please realize that you were seen in the emergency department and that we are providing you with an emergency medical screening exam and this may not be a complete and all exclusive of all testing and/or medical workup we may need to determine your element or severity of your illness. It is very important that you follow-up as instructed with your primary care provider or specialist for the additional evaluation and to discuss your medical treatment plan. You may return to the emergency department should you have concerns or if your condition changes or worsens in any way. Coding Level of Care Code ED Feeder Tender for Linda Weinberg
--- NOTE | 2024-06-18 03:45 | ECG_ITS ---
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 Measurements Intervals [place] Rate: 82 P: 58 NV: 223 QRS: 14 QRSD: 106 T: 51 QT: 409 QTc: 478 Interpretive Statements SINUS RHYTHM WITH FIRST DEGREE AV BLOCK Compared to ECG 08/30/2023 09:30:51 Left ventricular hypertrophy no longer present T-wave abnormality no longer present Electronically Signed On 06-18-2024 8:28:17 CDT by Darrel Caldwell M.D. [id number]
[2024-06-18 03:46] VITALS: PULSE 80; RESP 16; O2SAT 96
[2024-06-18] MEDS: ketorolac 60 mg/2 mL INJ IM (03:53)
[2024-06-18] MEDS: dexamethasone 10 mg/mL INJ IM (03:53)
[2024-06-18 04:03] VITALS: BP 171/119; PULSE 83; RESP 18; O2SAT 97
== END 2024-06-18 04:04 | disposition home or self-care (01) ==
PROVIDERS: Emergency Provider Emergency Medicine; PCP Family Medicine
DX: G89.29 Other chronic pain (principal); M54.6 Pain in thoracic spine; Z79.82 Long term (current) use of aspirin; I10 Essential (primary) hypertension; Z86.73 Personal history of transient ischemic attack (TIA), and cerebral infarction without residual deficits
CPT/HCPCS: 93005; 96372; 99284; J1100; J1885

== ENCOUNTER → 2024-06-19 09:18 | Outpatient (BNVA) | payer OTHER, MEDICAID, SELFPAY | PROVIDERS: PCP Family Medicine; Visit Provider Specialist | DX: S46.012A Strain of muscle(s) and tendon(s) of the rotator cuff of left shoulder, initial encounter (principal); M67.912 Unspecified disorder of synovium and tendon, left shoulder; X58.XXXA Exposure to other specified factors, initial encounter; M19.012 Primary osteoarthritis, left shoulder | CPT/HCPCS: 73030 ==

== ENCOUNTER → 2024-07-09 12:50 | Outpatient (BNVA) | payer OTHER, MEDICAID, SELFPAY | PROVIDERS: PCP Family Medicine; Visit Provider Orthopaedic Surgery | DX: M54.6 Pain in thoracic spine (principal); M54.9 Dorsalgia, unspecified; G89.29 Other chronic pain | CPT/HCPCS: 72072; 72110 ==

== ENCOUNTER 2024-07-09 23:29 | Inpatient (IN) | payer OTHER, MEDICAID, SELFPAY ==
[2024-07-09 23:30] VITALS: BP 94/73; PULSE 91; RESP 16; TEMP 36.7; O2SAT 94; BMI 26.4
--- NOTE | 2024-07-09 23:36 | XRR_ITS ---
PROCEDURE INFORMATION: Exam: XR Chest Exam date and time: 07/09/2024 11:46 PM Age: 64 years old Clinical indication: Other: Chest pain, n/v, weakness TECHNIQUE: Imaging protocol: Radiologic exam of the chest. Views: 1 view. COMPARISON: CR XR chest 1V portable [id number] 07/26/2023 4:49 AM FINDINGS: Lungs: Mild vascular crowding at the bases and atelectasis, which may be related to low lung volumes. No focal consolidation. Pleural spaces: No pleural effusion. No pneumothorax. Heart/Mediastinum: Stable cardiac silhouette. Bones/joints: Right humeral suture anchors. Stable widening of the right acromioclavicular distance, possibly representing a chronic sprain. Scattered degenerative changes of the spine. XR/XR chest 1V portable [id number] IMPRESSION: 1. Low lung volumes. Bibasilar atelectasis and vascular crowding. 2. No focal consolidation or sizable pleural effusion.
--- NOTE | 2024-07-09 23:39 | ED_ITS ---
HPI - GI Bleed 2 General: Chief complaint: GI Bleed Stated complaint: N/V Time Seen by Provider: 07/09/24 23:33 History of Present Illness: 64-year-old man with a history of hypert ension who presents to the emergency room with lightheadedness and nausea vomiting and diarrhea that he says were black and tarry. No abdominal pain. No fever. He said he almost passed out at 1 point. And then he went to the bathroom and ended up having black emesis and black tarry diarrhea. No focal motor deficits. No altered mental status. No chest pain. Related Data Previous Rx's Medication Instructions Recorded aspirin 325 mg tablet 325 mg PO DAILY #30 tabs 11/16/20 atorvastatin 10 mg tablet 10 mg PO DAILY #90 tabs 03/23/22 losartan 100 mg tablet 100 mg PO DAILY #90 tabs 08/22/23 potassium chloride 20 mEq 20 meq PO DAILY 60 days #120 tabs 09/06/23 tablet,extended release metoclopramide HCl 10 mg tablet 10 mg PO .BEFORE MEAL PRN nausea 12/21/23 (Reglan) and vomiting #20 tabs polyethylene glycol 3350 17 gram 17 g PO DAILY #30 ea 12/21/23 oral powder packet (Miralax) diclofenac sodium 1 % topical gel 2 g topical QID #100 grams 01/22/24 (Voltaren Arthritis Pain) buspirone 10 mg tablet 10 mg PO BID nerves #60 tabs 02/19/24 hydrochlorothiazide 12.5 mg tablet 12.5 mg PO DAILY blood pressure 03/28/24 and fluid retention #30 tabs nifedipine 60 mg tablet,extended 60 mg PO DAILY #30 tabs 03/28/24 release tramadol 50 mg tablet 50 mg PO Q8H PRN pain #20 tabs 03/31/24 amoxicillin 875 mg-potassium 1 tab PO BID #20 tabs 04/14/24 clavulanate 125 mg tablet meloxicam 15 mg tablet 15 mg PO DAILY #30 tabs 05/20/24 diclofenac sodium 50 mg 50 mg PO Q12H #20 tabs 06/18/24 tablet,delayed release prednisone 50 mg tablet 50 mg PO DAILY #5 tabs 06/18/24 tramadol 50 mg tablet 50 mg PO Q8H PRN pain #14 tabs 06/18/24 hydrocodone 7.5 mg-acetaminophen 1 tab PO Q8H PRN pain 7 days #20 06/19/24 325 mg tablet tabs prednisone 20 mg tablet 20 mg PO DAILY #15 tabs 07/09/24 Allergies Allergy/AdvReac Type Severity Reaction Status Date / Time No Known Allergies Allergy Verified 07/09/24 23:36 Review of Systems 2 Narrative: Constitutional symptoms: Negative except as documented in HPI. Skin symptoms: Negative except as documented in HPI. Eye symptoms: Negative except as documented in HPI. ENMT symptoms: Negative except as documented in HPI. Respiratory symptoms: Negative except as documented in HPI. Cardiovascular symptoms: Negative except as documented in HPI. Gastrointestinal symptoms: Negative except as documented in HPI. Genitourinary symptoms: Negative except as documented in HPI. Musculoskeletal symptoms: Negative except as documented in HPI. Neurologic symptoms: Negative except as documented in HPI. Psychiatric symptoms: Negative except as documented in HPI. Endocrine symptoms: Negative except as documented in HPI. PFSH ED 2 PFSH: Medical History Erectile dysfunction Hypokalemia Post laminectomy syndrome Hypercholesteremia Cervical disc disease with myelopathy EKTA (obstructive sleep apnea) Hypertension Palpitations Lacunar stroke of right subthalamic region Depression Status migrainosus Surgical History Hx laparoscopic cholecystectomy 08/30/23 Dr Truong Family History Mother Hypertension Brother Hypotension Social History Smoking and tobacco/nicotine status: never used tobacco/nicotine Second hand smoke exposure: No Alcohol intake: current Substance/Drug Use: never Marital status: Physical Exam 2 Narrative: EXAM NARRATIVE: General: Alert, no acute distress. Skin: Warm, dry. Head: Normocephalic, atraumatic. Neck: Supple, trachea midline. Eye: Extraocular movements are intact. Ears, nose, mouth and throat: mucosa moist. Cardiovascular: Regular, Normal peripheral perfusion. Respiratory: Lungs are clear to auscultation, respirations are non-labored, breath sounds are equal, Symmetrical chest wall expansion. Gastrointestinal: Soft, Nontender, Non distended Musculoskeletal: Normal ROM, no deformity. Neurological: Alert and oriented, No focal neurological deficit observed. Psychiatric: Cooperative, appropriate mood & affect. Course 2 Vital Signs: Vital signs: Vital Signs Temperature 98.0 F 07/09/24 23:30 Pulse Rate 88 07/10/24 02:30 Respiratory Rate 19 H 07/10/24 02:30 Blood Pressure 127/93 07/10/24 02:15 Pulse Oximetry 97 07/10/24 02:30 Oxygen Delivery Me thod Room Air 07/10/24 02:30 MDM - GI Bleed Medical Decision Making Medical decision making: Differential diagnosis including but not limited to and based on the above HPI, review of systems and physical exam: Patient with dizziness, low blood pressure and black stools and vomiting. Concern for upper GI bleeding primarily. Viral gastroenteritis would be included. Orders placed to evaluate differential diagnosis based on the above differential, HPI and physical exam EKG: Time 2344. Rate 95. Normal sinus rhythm, No ST-T changes, no ectopy, normal [place] & QRS intervals, This was reviewed and interpreted by myself the ER physician at 2347 Lab Review: Laboratory results were reviewed and interpreted by myself the emergency room physician. White count was 7. Hemoglobin is much decreased from baseline. Is 7.8 today. His usual is around 13-14. BUN and creatinine are elevated at 35 and 1.3. This would also indicate active upper GI bleeding. Chest x-ray: No acute process. No infiltrate. No pneumothorax. This was reviewed and interpreted by myself the ER physician. I reviewed the patient's medical record. Reexamination: Patient remained stable. No increased work of breathing. No altered mental status. No focal motor deficits. Consultation: I spoke with Dr. Garcia who will see the patient in the morning. Recommends admission to the hospitalist. Agrees with Protonix and fluids. Consultation: I spoke with Dr. Davsi who is on-call for the hospitalist who agrees to admission. Assessment and plan: Acute upper GI bleeding Acute blood loss anemia Hypotension -Normal saline bolus and 80 mg IV Protonix. Type and screen was sent. -I discussed the patient with the hospitalist on-call who is admitting the patient. - Discussed findings and plan with patient. Answered any questions. - All laboratory values were reviewed and interpreted personally by myself, the ER physician - All imaging was reviewed and interpreted personally by myself, the ER physician. - Evaluation and treatment of this problem were appropriate in the emergency setting Lab Data 07/10/24 02:36 07/10/24 00:15 Radiology Impressions Chest X-Ray 07/09/24 23:36 IMPRESSION: 1. Low lung volumes. Bibasilar atelectasis and vascular crowding. 2. No focal consolidation or sizable pleural effusion. Laboratory Results WBC 7.10 10^3/uL (3.29-11.43) 07/09/24 23:15 RBC 2.91 10^6/uL (3.85-5.65) L 07/09/24 23:15 Hgb 7.80 g/dL (11.27-16.99) L 07/09/24 23:15 Hct 24.9 % (37-53) L 07/09/24 23:15 MCV 85.6 fl (82-101) 07/09/24 23:15 MCH 26.8 pg (27-33) L 07/09/24 23:15 MCHC 31.3 g/dL (30-55) 07/09/24 23:15 RDW 14.6 % (12.1-15.1) 07/09/24 23:15 Plt Count 306 10^3/cmm (157-399) 07/09/24 23:15 MPV 10.2 fL (7.4-10.4) 07/09/24 23:15 Neut % (Auto) 44.7 % 07/09/24 23:15 Lymph % (Auto) 39.0 % 07/09/24 23:15 [place] % (Auto) 12.5 % 07/09/24 23:15 Eos % (Auto) 2.5 % 07/09/24 23:15 Baso % (Auto) 1.0 % 07/09/24 23:15 Neut # (Auto) 3.17 10^3/uL (1.8-7.7) 07/09/24 23:15 Lymph # (Auto) 2.8 10^3/uL (0.8-4.8) 07/09/24 23:15 [place] # (Auto) 0.9 10^3/uL (0.2-0.9) 07/09/24 23:15 Eos # (Auto) 0.2 10^3/uL (0.0-0.8) 07/09/24 23:15 Baso # (Auto) 0.1 10^3/uL (0.0-0.1) 07/09/24 23:15 Nucleated RBC % (auto) 0 % 07/09/24 23:15 Nucleated RBCs # 0.0 /100WBC 07/09/24 23:15 PT 16.00 SECONDS (12.1-14.9) H 07/09/24 23:15 INR 1.24 (0.8-1.2) H 07/09/24 23:15 APTT 23.3 SECONDS (23.9-36.7) L 07/09/24 23:15 Sodium 144 mmol/L (136-145) 07/10/24 00:15 Potassium 3.1 mmol/L (3.5-5.1) L 07/10/24 00:15 Chloride 105 mmol/L (98-107) 07/10/24 00:15 Carbon Dioxide 24 mmol/L (22-29) 07/10/24 00:15 Anion Gap 18.1 (5-19) 07/10/24 00:15 BUN 35 mg/dL (8-23) H 07/10/24 00:15 Creatinine 1.3 mg/dL (0.7-1.2) H 07/10/24 00:15 GFR Calculation 55.6 mL/min (90-130) L 07/10/24 00:15 Glucose 196 mg/dL (65-115) H 07/10/24 00:15 Calculated Osmolality 311 mOsm/kg (285-295) H 07/10/24 00:15 Lactic Acid 4.3 mmol/L (0.5-2.2) H* 07/09/24 23:15 Calcium 8.3 mg/dL (8.5-10.5) L 07/10/24 00:15 Total Bilirubin 0.4 mg/dL (0.15-1.2) 07/10/24 00:15 AST 13 U/L (0-40) 07/10/24 00:15 ALT 19 U/L (0-41) 07/10/24 00:15 Alkaline Phosphatase 62 U/L (40-130) 07/10/24 00:15 Troponin T Baseline 16 ng/L (0-15) H 07/09/24 23:15 C-Reactive Protein 3.0 mg/L (0.0-4.9) 07/09/24 23:15 Total Protein 5.7 g/dL (6.6-8.7) L 07/10/24 00:15 Albumin 3.5 g/dL (3.5-5.2) 07/10/24 00:15 Globulin 2.2 g/dL (1.3-4.6) 07/10/24 00:15 Blood Type A Positive 07/10/24 00:01 Rho(D) Type Rh positive 07/10/24 00:01 Antibody Screen Negative 07/10/24 00:01 All radiology interpretation(s) finalized by discharge Discharge Plan Discharge Patient Disposition: Admitted As Inpatient Admit Provider: Hakeem Davis Clinical Impression: Acute upper GI bleed, Anemia due to acute blood loss Condition: Stable Coding Level of Care Code ED Respiratory Care Faculty for Linda Weinberg
--- NOTE | 2024-07-09 23:44 | ECG_ITS ---
[facility] Test Date: 2024-07-09 Pat Name: Elieser Griffin Department: Room: Gender: Male [employer]: : 1960 Requested By: Radha Taylor Order Number: [id number] Tao MD: Darrel Caldwell M.D. Measurements Intervals [place] Rate: 95 P: 49 MS: 207 QRS: 6 QRSD: 108 T: 29 QT: 384 QTc: 484 Interpretive Statements SINUS RHYTHM LOW QRS VOLTAGE IN PRECORDIAL LEADS [QRS DEFLECTION < 1.0 mV IN CHEST LEADS] MINIMAL VOLTAGE CRITERIA FOR LVH, CONSIDER NORMAL VARIANT [MEETS CRITERIA IN ONE OF: R(aVL), S(V1), R(V5), R(V5/V6)+S(V1)] Compared to ECG 06/18/2024 03:13:56 Low QRS voltage now present First degree AV block no longer present Electronically Signed On 07-10-2024 11:21:43 CDT by Darrel Caldwell M.D. [id number]
[2024-07-09 23:45] LABS: Basophils # 0.1 10^3/uL (0.0-0.1); Eosinophils # 0.2 10^3/uL (0.0-0.8); Eosinophils % 2.5 %; Hematocrit 24.9 % (37-53); Lymphocytes # 2.8 10^3/uL (0.8-4.8); Mean Corpuscular HGB Conc 31.3 g/dL (30-55); Mean Corpuscular Hemoglobin 26.8 pg (27-33); Mean Corpuscular Volume 85.6 fl (82-101); Mean Platelet Volume 10.2 fL (7.4-10.4); Monocytes # 0.9 10^3/uL (0.2-0.9); Monocytes % 12.5 %; Neutrophils # 3.17 10^3/uL (1.8-7.7); Neutrophils % 44.7 %; Nucleated Red Blood Cells % 0 %; Platelet Count 306 10^3/cmm (157-399); Red Blood Count 2.91 10^6/uL (3.85-5.65); Red Cell Distribution Width 14.6 % (12.1-15.1)
[2024-07-09 23:59] LABS: INR 1.24 (0.8-1.2)
[2024-07-10] VITALS (42 sets, daily range): BP systolic 96–170; BP diastolic 68–131; PULSE 67–101; RESP 8–24; TEMP 37–37.5; O2SAT 84–99; BMI 26.2; BMI 26.6
[2024-07-10] LABS: Partial Thromboplastin Time 23.3 SECONDS (23.9-36.7)
[2024-07-10 00:04] LABS: Troponin(5th) Baseline 16 ng/L (0-15)
[2024-07-10 00:07] LABS: Lactic Sepsis W/Reflex 4.3 mmol/L (0.5-2.2)
[2024-07-10] MEDS: pantoprazole 40 mg SDV 80 MG IVP (00:14)
[2024-07-10] MEDS: ondansetron 2 mg/ML SDV 2 mL 8 MG IVP (00:15)
[2024-07-10] MEDS: sodium chloride 0.9% 1,000 ML 999 ML IV (00:17)
[2024-07-10 00:47] LABS: Alanine Aminotransferase 19 U/L (0-41); Albumin Level 3.5 g/dL (3.5-5.2); Alkaline Phosphatase 62 U/L (40-130); Aspartate Amino Transferase 13 U/L (0-40); Blood Urea Nitrogen 35 mg/dL (8-23); Calcium 8.3 mg/dL (8.5-10.5); Carbon Dioxide 24 mmol/L (22-29); Chloride 105 mmol/L (98-107); Creatinine Clr Calc Pharmacy 64.6757; Globulin 2.2 g/dL (1.3-4.6); Glomerular Filtration Rate 55.6 mL/min (90-130); Glucose 196 mg/dL (65-115); Osmolality Calculated 311 mOsm/kg (285-295); Sodium 144 mmol/L (136-145); Total Bilirubin 0.4 mg/dL (0.15-1.2); Total Protein 5.7 g/dL (6.6-8.7)
[2024-07-10 00:50] LABS: Anion Gap 18.1 (5-19); Potassium 3.1 mmol/L (3.5-5.1)
--- NOTE | 2024-07-10 01:08 | PM.HP ---
Providers/Chief Complaint Primary Care Provider: Davin Roe MD Chief Complaint: N/V History of Present Illness Elieser Griffin is a 64 year old male with a past medical history significant for chronic back pains on chronic NSAIDs, hypertension, depression, sleep apnea, and multiple other comorbidities who presents to the emergency department with nausea and vomiting. He endorses associated lightheadedness as well as black tarry stools. He reports he may have passed out once. Denies head trauma. Denies any focal deficits. He reports a burning epigastric pain for the past 3 to 4 months. Exertion worsens symptoms. Rest improves. In the emergency department, labs were suspicion for upper GI bleed. Patient denies known history of personal GI bleed. He cannot recall quite all his medications. He does report he is on a chronic NSAID, believes it to be meloxicam. He has been treated with multiple doses of prednisone this year. He states he just received another dose of prednisone but had not started taking it yet. He does report alcohol abuse about 3 weeks ago. States he started drinking heavily again and it scared him so he is quit. Denies any alcohol use in the past 3 weeks. Review of Systems Narrative: A complete review of systems was obtained and is negative except as stated in HPI. Medications/Allergies Home Medications Medication Instructions Recorded Confirmed Last Taken Type aspirin 325 mg tablet 325 mg PO DAILY #30 tabs 11/16/20 07/09/24 08/26/23 Rx atorvastatin 10 mg tablet 10 mg PO DAILY #90 tabs 03/23/22 07/09/24 08/28/23 Rx losartan 100 mg tablet 100 mg PO DAILY #90 tabs 08/22/23 07/09/24 08/28/23 Rx potassium chloride 20 mEq 20 meq PO DAILY 60 days #120 tabs 09/06/23 07/09/24 Unknown Rx tablet,extended release metoclopramide HCl 10 mg tablet 10 mg PO .BEFORE MEAL PRN nausea 12/21/23 07/09/24 Unknown Rx (Reglan) and vomiting #20 tabs polyethylene glycol 3350 17 gram 17 g PO DAILY #30 ea 12/21/23 07/09/24 Unknown Rx oral powder packet (Miralax) diclofenac sodium 1 % topical gel 2 g topical QID #100 grams 01/22/24 07/09/24 Unknown Rx (Voltaren Arthritis Pain) buspirone 10 mg tablet 10 mg PO BID nerves #60 tabs 02/19/24 07/09/24 Unknown Rx hydrochlorothiazide 12.5 mg tablet 12.5 mg PO DAILY blood pressure 03/28/24 07/09/24 Unknown Rx and fluid retention #30 tabs nifedipine 60 mg tablet,extended 60 mg PO DAILY #30 tabs 03/28/24 07/09/24 Unknown Rx release tramadol 50 mg tablet 50 mg PO Q8H PRN pain #20 tabs 03/31/24 07/09/24 Unknown Rx amoxicillin 875 mg-potassium 1 tab PO BID #20 tabs 04/14/24 07/09/24 Unknown Rx clavulanate 125 mg tablet meloxicam 15 mg tablet 15 mg PO DAILY #30 tabs 05/20/24 07/09/24 Unknown Rx diclofenac sodium 50 mg 50 mg PO Q12H #20 tabs 06/18/24 07/09/24 Unknown Rx tablet,delayed release prednisone 50 mg tablet 50 mg PO DAILY #5 tabs 06/18/24 07/09/24 Unknown Rx tramadol 50 mg tablet 50 mg PO Q8H PRN pain #14 tabs 06/18/24 07/09/24 Unknown Rx hydrocodone 7.5 mg-acetaminophen 1 tab PO Q8H PRN pain 7 days #20 06/19/24 07/09/24 Unknown Rx 325 mg tablet tabs prednisone 20 mg tablet 20 mg PO DAILY #15 tabs 07/09/24 07/09/24 Unknown Rx Allergies Allergy/AdvReac Type Severity Reaction Status Date / Time No Known Allergies Allergy Verified 07/09/24 23:36 PFSH Acute PFSH: Medical History Erectile dysfunction Hypokalemia Post laminectomy syndrome Hypercholesteremia Cervical disc disease with myelopathy EKTA (obstructive sleep apnea) Hypertension Palpitations Lacunar stroke of right subthalamic region Depression Status migrainosus Surgical History Hx laparoscopic cholecystectomy 08/30/23 Dr Truong Family History Mother Hypertension Brother Hypotension Social History Smoking and tobacco/nicotine status: never used tobacco/nicotine Second hand smoke exposure: No Alcohol intake: current Substance/Drug Use: never Marital status: Vitals/I&O/Wt Last Vital Signs Temp 98.0 F 07/09/24 23:30 Pulse 89 07/10/24 00:36 Resp 16 07/09/24 23:30 BP 122/88 07/10/24 00:36 Pulse Ox 94 07/09/24 23:30 O2 Del Method Room Air 07/09/24 23:30 Weight last 48 hrs Weight 86.183 kg Physical Exam Narrative: General: Patient is awake and alert. Pale appearing. Head: Normocephalic. Atraumatic. EOM intact. Dry mucous membranes. Neck: No JVD. Cardiovascular: RRR. No gallops. No murmurs. No peripheral edema. Lungs: Clear to auscultation, no use of accessory muscles, no crackles or wheezes. Skin: No jaundice. No rashes. Abdomen: Normal bowel sounds, abdomen soft and nontender. Genito Urinary: Genital exam not performed since complaints not related. Extremities: No cyanosis or clubbing. Musculoskeletal: No swollen or erythematous joints. Neurological: Moves all 4 extremities. No myoclonus. Data 07/09/24 23:15 07/10/24 00:15 Micro: Microbiology 07/10/24 00:05 Blood Culture - Preliminary Blood SPECIMEN COLLECTED 07/10/24 00:01 Blood Culture - Preliminary Blood SPECIMEN COLLECTED A&P Assessment and plan (1) GI bleed: Acute GI bleeds, suspected upper Multiple risk factors including NSAID use, prior steroid use, alcohol use, increased stress Status post pantoprazole 80 IV push Start pantoprazole drip Start IV fluids with D5NS Trend hemoglobin, will likely require transfusion to which she consents to General surgery consulted, anticipating EGD today N.p.o. (2) Hypertension: Hold antihypertensives in the setting of GI bleed Qualifiers: Hypertension type: essential hypertension Qualified Code(s): I10 - Essential (primary) hypertension (3) Hypokalemia: Likely secondary to nausea/vomiting as well as hydrochlorothiazide Replace with IV potassium (4) Acute blood loss anemia: Acute blood loss anemia secondary to GI bleed Management noted as above (5) Acute kidney injury: Acute kidney injury, likely prerenal from hypovolemic blood loss Start aggressive IV fluids Avoid nephrotoxins Trend labs Plan DVT prophylaxis: SCDs CODE STATUS: Full code Attestations Medical Necessity Statement*: Patient presents with multiple symptoms, found to have acute blood loss anemia secondary to suspected upper GI bleed for which he will require more than 2 midnights hospitalization for aggressive IV fluids, serial labs, likely blood transfusion, EGD, and supportive care. Coding Level of Care Code Acute Code for [facility] Fwd Diagnoses GI bleed K92.2 Essential hypertension I10 Hypertension type: essential hypertension Hypokalemia E87.6 Acute blood loss anemia D62 Acute kidney injury N17.9
[2024-07-10 01:29] LABS: Reflex Lactate Order REFLEX LACTIC ORDERD
[2024-07-10] MEDS: potassium chloride premix 100 ML 25 MEQ IV (02:03)
[2024-07-10 02:32] LABS: Lactic Acid level (Lactate) 1.2 mmol/L (0.5-2.2)
[2024-07-10] MEDS: dextrose 5%-sod chloride 0.9% 1,000 ML 125 ML IV ×3 (02:34→23:27)
[2024-07-10] MEDS: pantoprazole 40 MG in sodium chloride 0.9% (plus) 100 ML 20 MG IV (02:43)
[2024-07-10 02:56] LABS: Hematocrit 22.3 % (37-53)
[2024-07-10] MEDS: sodium chloride 0.9% 100 mL Bag 50 ML IV (04:15)
[2024-07-10] MEDS: HYDROmorphone 1 mg/mL INJ 1 mL 0.4 MG IVP (05:26)
--- NOTE | 2024-07-10 07:42 | P.CONIM_ITS ---
Providers/Reason For Consult 2 Consulting Physician/Specialty*: General surgery Reason for Consult*: Acute upper GI bleeding Attending Physician: Gustavo Yepez MD Primary Care Provider: Davin Roe MD History of Present Illness History of Present Illness Elieser Griffin is a 64 year old male who presents to the hospital complaining of coffee-ground emesis and black tarry stools starting yesterday. Per patient report he often takes NSAIDs and in addition to that he has been very stressed over the last 24 to 48 hours. Yesterday evening he felt dizzy and went to the toilet bowl and at this point he equated large amount of black stool and also had several episodes of coffee-ground emesis. No more vomiting since arrival to the hospital otherwise he is feeling okay. Has some upper abdominal burning but no sharp abdominal pain Review of Systems 2 General: Reports: 10 or more systems reviewed and unremarkable except in HPI and below Medications/Allergies Home Medications Medication Instructions Recorded Confirmed Last Taken Type aspirin 325 mg tablet 325 mg PO DAILY #30 tabs 11/16/20 07/09/24 08/26/23 Rx atorvastatin 10 mg tablet 10 mg PO DAILY #90 tabs 03/23/22 07/09/24 08/28/23 Rx losartan 100 mg tablet 100 mg PO DAILY #90 tabs 08/22/23 07/09/24 08/28/23 Rx potassium chloride 20 mEq 20 meq PO DAILY 60 days #120 tabs 09/06/23 07/09/24 Unknown Rx tablet,extended release metoclopramide HCl 10 mg tablet 10 mg PO .BEFORE MEAL PRN nausea 12/21/23 07/09/24 Unknown Rx (Reglan) and vomiting #20 tabs polyethylene glycol 3350 17 gram 17 g PO DAILY #30 ea 12/21/23 07/09/24 Unknown Rx oral powder packet (Miralax) diclofenac sodium 1 % topical gel 2 g topical QID #100 grams 01/22/24 07/09/24 Unknown Rx (Voltaren Arthritis Pain) buspirone 10 mg tablet 10 mg PO BID nerves #60 tabs 02/19/24 07/09/24 Unknown Rx hydrochlorothiazide 12.5 mg tablet 12.5 mg PO DAILY blood pressure 03/28/24 07/09/24 Unknown Rx and fluid retention #30 tabs nifedipine 60 mg tablet,extended 60 mg PO DAILY #30 tabs 03/28/24 07/09/24 Unknown Rx release tramadol 50 mg tablet 50 mg PO Q8H PRN pain #20 tabs 03/31/24 07/09/24 Unknown Rx amoxicillin 875 mg-potassium 1 tab PO BID #20 tabs 04/14/24 07/09/24 Unknown Rx clavulanate 125 mg tablet meloxicam 15 mg tablet 15 mg PO DAILY #30 tabs 05/20/24 07/09/24 Unknown Rx diclofenac sodium 50 mg 50 mg PO Q12H #20 tabs 06/18/24 07/09/24 Unknown Rx tablet,delayed release prednisone 50 mg tablet 50 mg PO DAILY #5 tabs 06/18/24 07/09/24 Unknown Rx tramadol 50 mg tablet 50 mg PO Q8H PRN pain #14 tabs 06/18/24 07/09/24 Unknown Rx hydrocodone 7.5 mg-acetaminophen 1 tab PO Q8H PRN pain 7 days #20 06/19/24 07/09/24 Unknown Rx 325 mg tablet tabs prednisone 20 mg tablet 20 mg PO DAILY #15 tabs 07/09/24 07/09/24 Unknown Rx Allergies Allergy/AdvReac Type Severity Reaction Status Date / Time No Known Allergies Allergy Verified 07/09/24 23:36 Current Medications Generic Name Dose Route Start Last Admin Trade Name Freq PRN Reason Stop Dose Admin Hydromorphone HCl 0.4 mg 07/10/24 02:25 07/10/24 05:26 Hydromorphone 1 Mg/Ml Inj 1 Ml IVP 0.4 mg Q4H PRN Administration PAIN Dextrose/Sodium Chloride 1,000 mls @ 125 mls/hr 07/10/24 02:25 07/10/24 02:34 Dextrose 5%-Sod Chloride 0.9% IV 125 mls/hr .Q8H ALAINA Administration Sodium Chloride 50 ml 07/10/24 03:12 07/10/24 04:15 Sodium Chloride 0.9% 100 Ml Bag IV 07/11/24 03:12 50 ml PRN PRN Administration Blood transfusion prime and flush PFSH Acute 2 PFSH: Medical History Erectile dysfunction Hypokalemia Post laminectomy syndrome Hypercholesteremia Cervical disc disease with myelopathy EKTA (obstructive sleep apnea) Hypertension Palpitations Lacunar stroke of right subthalamic region Depression Status migrainosus Surgical History Hx laparoscopic cholecystectomy 08/30/23 Dr Truong Family History Mother Hypertension Brother Hypotension Social History Smoking and tobacco/nicotine status: never used tobacco/nicotine Second hand smoke exposure: No Alcohol intake: current Substance/Drug Use: never Marital status: Vitals/I&O/Wt Last Vital Signs Temp 99.1 F 07/10/24 05:40 Pulse 86 07/10/24 06:40 Resp 23 H 07/10/24 06:40 BP 140/81 07/10/24 06:40 Pulse Ox 95 07/10/24 06:40 O2 Del Method Room Air 07/10/24 06:00 07/09/24 07/10/24 07/10/24 22:59 06:59 14:59 Intake Total 1450 / 1450 96.333 / 96.333 Balance 1450 / 1450 96.333 / 96.333 Weight last 48 hrs Weight 191 lb 3.2 oz Weight 191 lb 3.2 oz Weight 188 lb 6.4 oz Weight 190 lb Physical Exam 2 Narrative: General : Patient is well developed , no acute distress, oriented x3 Head : Normal cephalic, a-traumatic. Nose : Mucous membranes are without erythema. Lungs : Equal chest rise bilaterally, no use of accessory muscles, trachea is midline. CV : Rate and rhythm are normal. Abdomen : Soft, mild to moderate epigastric tenderness no peritoneal signs Extremities : No edema. Upper extremities are normal bilaterally. Back : non-tender to palpation, no CVA tenderness. Data 07/10/24 02:36 07/10/24 00:15 Micro: Microbiology 07/10/24 00:05 Blood Culture - Preliminary Blood SPECIMEN COLLECTED 07/10/24 00:01 Blood Culture - Preliminary Blood SPECIMEN COLLECTED A&P Assessment and plan (1) Acute upper GI bleed: (2) GI bleed: Plan After complete history, physical examination and review of all available clinical data the following is my assessment. Patient presenting with an upper GI bleeding appears to be active, hemoglobin level has dropped to 7 and patient required blood transfusion overnight. He denies any immediate nausea or vomiting at this point and h his abdominal pain is controlled. I have discussed the possibility of proceeding with endoscopy I discussed all recent benefits including the risk of perforation, rebleeding, need for transfer to higher level of care for embolization, risks of being unable to control the bleeding with endoscopic measures. Patient shows understanding is agreeable to proceed. We will book the case for today, in the interim patient should remain n.p.o. in PPI drip and we should avoid any gastrotoxin medications. -To the endoscopy suite today for EGD and control of upper GI bleed -Continue high-dose PPI -Will start the patient on sucralfate on the immediate postoperative period Coding Level of Care Code Acute Code for [facility] Fwd Diagnoses Acute upper GI bleed K92.2 GI bleed K92.2
[2024-07-10 08:19] LABS: Hematocrit 22.5 % (37-53)
--- NOTE | 2024-07-10 08:31 | PC.PHAR ---
PT NO LONGER TAKING SEVERAL MEDICATIONS. ATORVASTATIN 10MG, DICLOFENAC SOD 50MG, INDOMETHACIN 50MG, NORCO 7.5-325, REGLAN 10MG, MIRALAX, PREDNISONE 50MG, AND TRAMADOL. CLEANED UP MED LIST WITH PT.
[2024-07-10] MEDS: pantoprazole 40 mg SDV IVP ×2 (08:53→20:25)
[2024-07-10] MEDS: sucralfate 1 gm/10 mL Oral Liq UDC PO ×3 (08:53→20:25)
[2024-07-10 09:21] LABS: Bilirubin Urine Negative (Negative); Blood Urine Negative (Negative); Glucose Urine UA Negative (Normal); Ketones Urine Negative (Negative); Leukocyte Esterase Urine Negative (Negative); Nitrate Urine Negative (Negative); Protein Urine Negative (Negative); Specific Gravity, Urine 1.024 (1.005-1.030); Urine Appearance Clear (CLEAR); Urine Color Yellow (Yellow); pH Urine 5.5 (5-7)
[2024-07-10 09:24] LABS: Bacteria Urine None Seen /hpf; Hyaline Casts Urine 9.07 /lpf; RBC Urine 0-2 /hpf (0-2); Squamous Epithelial Cell Urine 0-5 /hpf (0-5); WBC Urine 0-5 /hpf (0-5)
[2024-07-10 09:40] LABS: UA Slide Review UA Slide Review Perf
[2024-07-10] MEDS: sodium chloride 0.9% 1,000 ML 30 ML IV ×2 (10:35→12:24)
--- NOTE | 2024-07-10 11:43 | P.PN_ITS ---
Subjective 2 Subjective: Patient was seen this morning, he is alert awake, following all commands, denies any fevers, no chills, no nausea, no vomiting, is passing gas from below, no bloody black stools, he denies any NSAID use, but is on meloxicam as per his med list at home, has been on prednisone, reports a prior history of stroke, that so he is on aspirin 325mg, Vitals/I&O/Wt Last Vital Signs Temp 99.1 F 07/10/24 05:40 Pulse 77 07/10/24 10:00 Resp 17 07/10/24 10:00 BP 145/98 07/10/24 10:00 Pulse Ox 90 07/10/24 10:00 O2 Del Method Room Air 07/10/24 06:00 07/09/24 07/10/24 07/10/24 22:59 06:59 14:59 Intake Total 1450 / 1450 1096.333 / 1096.333 Balance 1450 / 1450 1096.333 / 1096.333 Weight last 48 hrs Weight 86.727 kg Weight 86.727 kg Weight 85.457 kg Weight 86.183 kg Physical Exam 2 Const: COMMON NORMALS: no acute distress and patient oriented x3 Resp: COMMON NORMALS: normal respiratory effort, No retractions, No use of accessory muscles and clear to auscultation bilaterally AUSCULTATION: clear to auscultation bilaterally Cardio: COMMON NORMALS: regular rate, regular rhythm, S1 normal heart sound present and S2 normal heart sound present RATE: regular rate RHYTHM: r egular rhythm HEART SOUNDS: S1 normal heart sound present and S2 normal heart sound present GI: COMMON NORMALS: Normal to inspection, nondistended, normoactive bowel sounds present and non-tender Extremity: COMMON NORMALS: no pedal edema Neuro: COMMON NORMALS: patient oriented x3 Psych: COMMON NORMALS: mental status grossly normal Data 07/10/24 08:05 07/10/24 00:15 Micro: Microbiology 07/10/24 00:05 Blood Culture - Preliminary Blood SPECIMEN COLLECTED 07/10/24 00:01 Blood Culture - Preliminary Blood SPECIMEN COLLECTED A&P Assessment and plan (1) GI bleed: Acute GI bleed suspected upper GI bleed Multiple risk factors , prior steroid use, alcohol use, increased stress Protonix 40 IV twice daily Carafate 1 g every 6 hours IV fluids with D5NS Status post 1 unit PRBC Monitor hemoglobin every 6 hours General surgery consulted, anticipating EGD today N.p.o. (2) Hypertension: Hold antihypertensives in the setting of GI bleed Qualifiers: Hypertension type: essential hypertension Qualified Code(s): I10 - Essential (primary) hypertension (3) Hypokalemia: Likely secondary to nausea/vomiting as well as hydrochlorothiazide Replace with IV potassium (4) Acute blood loss anemia: Acute blood loss anemia secondary to GI bleed Management noted as above (5) Acute kidney injury: Acute kidney injury, likely prerenal from hypovolemic blood loss IV fluids Avoid nephrotoxins Trend labs Plan DVT prophylaxis: SCDs, Lovenox relatively contraindicated given history of GI bleed CODE STATUS: Full code History of alcoholism, CIWA Attestations 2 Medical Necessity Statement*: Patient requires hospitalization for GI bleed, acute anemia Diagnoses GI bleed K92.2 Essential hypertension I10 Hypertension type: essential hypertension Hypokalemia E87.6 Acute blood loss anemia D62 Acute kidney injury N17.9
[2024-07-10 12:06] LABS: Basophils % 0.7 %; Eosinophils # 0.1 10^3/uL (0.0-0.8); Hematocrit 22.3 % (37-53); Lymphocytes # 1.8 10^3/uL (0.8-4.8); Lymphocytes % 29.8 %; Mean Corpuscular HGB Conc 32.3 g/dL (30-55); Mean Corpuscular Volume 86.8 fl (82-101); Mean Platelet Volume 10.4 fL (7.4-10.4); Monocytes # 0.7 10^3/uL (0.2-0.9); Monocytes % 10.9 %; Neutrophils # 3.54 10^3/uL (1.8-7.7); Neutrophils % 57.4 %; Nucleated Red Blood Cells % 0 %; Platelet Count 231 10^3/cmm (157-399); Red Blood Count 2.57 10^6/uL (3.85-5.65); Red Cell Distribution Width 14.7 % (12.1-15.1); White Blood Count 6.15 10^3/uL (3.29-11.43)
[2024-07-10 12:26] LABS: Anion Gap 11.5 (5-19); Blood Urea Nitrogen 49 mg/dL (8-23); Calcium 7.6 mg/dL (8.5-10.5); Carbon Dioxide 23 mmol/L (22-29); Chloride 114 mmol/L (98-107); Creatinine Clr Calc Pharmacy 70.2567; Glucose 93 mg/dL (65-115); Osmolality Calculated 313 mOsm/kg (285-295); Potassium 3.5 mmol/L (3.5-5.1); Sodium 145 mmol/L (136-145)
--- NOTE | 2024-07-10 12:41 | ANES.PREANE2 ---
Pre-Anesthetic Assessment Height/Weight: Height 1.8 m Weight 86.727 kg Temp Pulse Resp BP Pulse Ox O2 Del Method 98.6 F 87 18 160/101 96 Room Air 07/10/24 12:14 07/10/24 12:14 07/10/24 12:14 07/10/24 12:14 07/10/24 12:14 07/10/24 12:14 Preop Diagnosis: gi bleed Operation Date: 07/10/24 12:00 Proposed Procedures p EGD(Not Applicable) - Vaibhav Truong MD Familial anesthetic complications: none Was Beta Lyssa taken within 24 hours: N/A Was Clonidine taken within 24 hours: N/A Social Alcohol (socially) and No tobacco Exam alert and oriented x 3 Airway Submandibular: within normal limits Cervical ROM: within normal limits Mallampati: Class II Dentition: false (6 teeth on bottom- not loose) History/ROS No significant history except as noted Pulmonary Chronic Obstructive Pulmonary Disease and Sleep Apnea CV/HEM Hypertension None reported Hepatic None reported GI Gastroesophageal Reflux Disease Metabolic Hyperlipidemia Musc/skel Weakness Neuropsych Cerebrovascular Accident (3-4 years ago, no residual effects) Anesthetic Plan ASA status: 3 Anesthesia: Anesthesia Evaluation, General and MAC Medications/Allergies Home Medications Medication Instructions Recorded Confirmed Last Taken Type aspirin 325 mg tablet 325 mg PO DAILY #30 tabs 11/16/20 07/10/24 07/09/24 Rx losartan 100 mg tablet 100 mg PO DAILY #90 tabs 08/22/23 07/10/24 07/09/24 Rx potassium chloride 20 mEq 20 meq PO DAILY 60 days #120 tabs 09/06/23 07/10/24 07/09/24 Rx tablet,extended release buspirone 10 mg tablet 10 mg PO BID nerves #60 tabs 02/19/24 07/10/24 07/09/24 Rx hydrochlorothiazide 12.5 mg tablet 12.5 mg PO DAILY blood pressure 03/28/24 07/10/24 07/09/24 Rx and fluid retention #30 tabs nifedipine 60 mg tablet,extended 60 mg PO DAILY #30 tabs 03/28/24 07/10/24 07/09/24 Rx release meloxicam 15 mg tablet 15 mg PO DAILY #30 tabs 05/20/24 07/10/24 07/09/24 Rx Allergies Allergy/AdvReac Type Severity Reaction Status Date / Time No Known Allergies Allergy Verified 07/09/24 23:36 Current Medications Generic Name Dose Route Start Last Admin Trade Name Freq PRN Reason Stop Dose Admin Hydromorphone HCl 0.4 mg 07/10/24 02:25 07/10/24 05:26 Hydromorphone 1 Mg/Ml Inj 1 Ml IVP 0.4 mg Q4H PRN Administration PAIN Dextrose/Sodium Chloride 1,000 mls @ 125 mls/hr 07/10/24 02:25 07/10/24 10:35 Dextrose 5%-Sod Chloride 0.9% IV Infused .Q8H ALAINA Infusion Sodium Chloride 1,000 mls @ 30 mls/hr 07/10/24 06:21 07/10/24 10:35 Sodium Chloride 0.9% IV 07/11/24 06:20 30 mls/hr .Q24H ONE Administration Sodium Chloride 1,000 mls @ 30 mls/hr 07/10/24 12:15 07/10/24 12:24 Sodium Chloride 0.9% IV 07/11/24 12:14 30 mls/hr .Q24H ALAINA Administration Pantoprazole Sodium 40 mg 07/10/24 08:30 07/10/24 08:53 Pantoprazole 40 Mg Sdv IVP 40 mg Q12H ALAINA Administration Sodium Chloride 50 ml 07/10/24 03:12 07/10/24 04:15 Sodium Chloride 0.9% 100 Ml Bag IV 07/11/24 03:12 50 ml PRN PRN Administration Blood transfusion prime and flush Sucralfate 1 gm 07/10/24 08:30 07/10/24 08:53 Sucralfate 1 Gm/10 Ml Oral Liq Udc PO 1 gm Q6H ALAINA Administration PFSH Anesthesia Medical History Erectile dysfunction Hypokalemia Post laminectomy syndrome Hypercholesteremia Cervical disc disease with myelopathy EKTA (obstructive sleep apnea) Hypertension Palpitations Lacunar stroke of right subthalamic region Depression Status migrainosus Surgical History Hx laparoscopic cholecystectomy 08/30/23 Dr Truong Family History Mother Hypertension Brother Hypotension Social History Smoking and tobacco/nicotine status: never used tobacco/nicotine Second hand smoke exposure: No Alcohol intake: current Substance/Drug Use: never Marital status: Data Anesthesia 07/10/24 11:52 07/10/24 11:52 Short CBC 07/09/24 07/10/24 07/10/24 Range/Units 23:15 02:36 08:05 WBC 7.10 (3.29-11.43) 10^3/uL Hgb 7.80 L 7.00 L 7.10 L (11.27-16.99) g/dL Hct 24.9 L 22.3 L 22.5 L (37-53) % MCV 85.6 (82-101) fl Plt Count 306 (157-399) 10^3/cmm Neut % (Auto) 44.7 % Neut # (Auto) 3.17 (1.8-7.7) 10^3/uL 07/10/24 Range/Units 11:52 WBC 6.15 (3.29-11.43) 10^3/uL Hgb 7.20 L (11.27-16.99) g/dL Hct 22.3 L (37-53) % MCV 86.8 (82-101) fl Plt Count 231 (157-399) 10^3/cmm Neut % (Auto) 57.4 % Neut # (Auto) 3.54 (1.8-7.7) 10^3/uL BMP 07/10/24 07/10/24 00:15 11:52 Sodium 144 145 Potassium 3.1 L 3.5 Chloride 105 114 H Carbon Dioxide 24 23 BUN 35 H 49 H Creatinine 1.3 H 1.2 Glucose 196 H 93 Calcium 8.3 L 7.6 L Cardiac Enzymes 07/09/24 Range/Units 23:15 Troponin T Baseline 16 H (0-15) ng/L Liver Function 07/10/24 Range/Units 00:15 Total Bilirubin 0.4 (0.15-1.2) mg/dL AST 13 (0-40) U/L ALT 19 (0-41) U/L Alkaline Phosphatase 62 (40-130) U/L Albumin 3.5 (3.5-5.2) g/dL Urine 08/14/24 Range/Units 08:55 Urine Color Yellow (Yellow) Urine Appearance Clear (CLEAR) Urine pH 5.5 (5-7) Ur Specific [place] 1.024 (1.005-1.030) Urine Protein Negative (Negative) Urine Glucose (UA) Negative (Normal) Urine Ketones Negative (Negative) Urine Nitrate Negative (Negative) Urine Bilirubin Negative (Negative) Ur Leukocyte Esterase Negative (Negative) Urine RBC 0-2 (0-2) /hpf Urine WBC 0-5 (0-5) /hpf Blood Bank 07/10/24 00:01 Blood Type A Positive Rho(D) Type Rh positive Antibody Screen Negative Coags 07/09/24 23:15 PT 16.00 H INR 1.24 H APTT 23.3 L C-Reactive Protein 3.0 Microbiology 07/10/24 00:05 Blood Culture - Preliminary Blood SPECIMEN COLLECTED 07/10/24 00:01 Blood Culture - Preliminary Blood SPECIMEN COLLECTED Cardiac Studies: Holter Monitor 12/03/19
--- NOTE | 2024-07-10 13:10 | ANE.PACU2 ---
Inpatient post-anesthesia follow up: Airway intact: Yes Vital signs: Temperature 98.6 F Pulse Rate [Orthos tatic 100 Standing] Pulse Rate [Orthos tatic 93 Sitting] Pulse Rate [Orthos tatic Lying] 89 Pulse Rate 87 Respiratory Rate 18 Blood Pressure [Or thostatic 96/68 Standing] Blood Pressure [Or thostatic 126/73 Sitting] Blood Pressure [Or thostatic 122/88 Lying] Blood Pressure 160/101 Pulse Oximetry 96 Oxygen Delivery Me thod Room Air Oxygen Flow Rate Fraction of Inspir ed Oxygen Hydration adequate: Yes Nausea and vomiting: No Pain level: 1 Mental status: Baseline
[2024-07-10 18:31] LABS: Basophils # 0.1 10^3/uL (0.0-0.1); Basophils % 0.9 %; Eosinophils # 0.1 10^3/uL (0.0-0.8); Eosinophils % 2.1 %; Lymphocytes # 1.9 10^3/uL (0.8-4.8); Mean Corpuscular HGB Conc 32.2 g/dL (30-55); Mean Corpuscular Hemoglobin 28.5 pg (27-33); Mean Corpuscular Volume 88.5 fl (82-101); Mean Platelet Volume 10.8 fL (7.4-10.4); Monocytes # 0.6 10^3/uL (0.2-0.9); Monocytes % 10.9 %; Neutrophils # 2.91 10^3/uL (1.8-7.7); Neutrophils % 51.9 %; Nucleated Red Blood Cells % 0 %; Platelet Count 222 10^3/cmm (157-399); Red Cell Distribution Width 14.9 % (12.1-15.1); White Blood Count 5.61 10^3/uL (3.29-11.43)
[2024-07-11] VITALS (34 sets, daily range): BP systolic 127–184; BP diastolic 36–118; PULSE 63–86; RESP 8–25; TEMP 36.7–37.4; O2SAT 90–100
[2024-07-11] MEDS: sucralfate 1 gm/10 mL Oral Liq UDC PO ×4 (02:30→20:00)
[2024-07-11 05:00] LABS: Basophils # 0.1 10^3/uL (0.0-0.1); Basophils % 0.9 %; Eosinophils # 0.3 10^3/uL (0.0-0.8); Eosinophils % 5.4 %; Lymphocytes # 2.1 10^3/uL (0.8-4.8); Lymphocytes % 38.9 %; Mean Corpuscular HGB Conc 31.9 g/dL (30-55); Mean Corpuscular Hemoglobin 27.8 pg (27-33); Mean Corpuscular Volume 87.2 fl (82-101); Mean Platelet Volume 10.3 fL (7.4-10.4); Monocytes # 0.7 10^3/uL (0.2-0.9); Monocytes % 13.6 %; Neutrophils # 2.19 10^3/uL (1.8-7.7); Nucleated Red Blood Cells % 0 %; Platelet Count 199 10^3/cmm (157-399); Red Blood Count 2.34 10^6/uL (3.85-5.65); Red Cell Distribution Width 14.8 % (12.1-15.1); White Blood Count 5.35 10^3/uL (3.29-11.43)
[2024-07-11 05:15] LABS: Alanine Aminotransferase 12 U/L (0-41); Alkaline Phosphatase 49 U/L (40-130); Anion Gap 9.9 (5-19); Aspartate Amino Transferase 11 U/L (0-40); Blood Urea Nitrogen 29 mg/dL (8-23); Calcium 7.3 mg/dL (8.5-10.5); Carbon Dioxide 25 mmol/L (22-29); Chloride 112 mmol/L (98-107); Creatinine Clr Calc Pharmacy 76.6437; Globulin 1.9 g/dL (1.3-4.6); Glomerular Filtration Rate 67.4 mL/min (90-130); Glucose 124 mg/dL (65-115); Magnesium 1.8 mg/dL (1.7-2.3); Osmolality Calculated 305 mOsm/kg (285-295); Sodium 144 mmol/L (136-145); Total Bilirubin 0.3 mg/dL (0.15-1.2); Total Protein 4.9 g/dL (6.6-8.7)
[2024-07-11 05:22] LABS: Hematocrit 20.4 % (37-53); Potassium 2.9 mmol/L (3.5-5.1)
--- NOTE | 2024-07-11 05:30 | PC.NURSE ---
Critical Labs: Notified Dr. Davis of critical labs (Hgb,Hct, K+) @8668. New order for 40 PO Klor-Con ONCE NOW and Transfuse 1 unit leuko-reduced RBCs.
[2024-07-11] MEDS: potassium chloride ER 20 mEq Tablet 40 MEQ PO (06:07)
[2024-07-11] MEDS: sodium chloride 0.9% 100 mL Bag XX (06:34)
--- NOTE | 2024-07-11 07:50 | P.PN_ITS ---
Subjective 2 Subjective: 64-year-old male with history of upper G I bleeding, has been stable over the last 24 hours, was initiated on diet and has been tolerating no further nausea or bowel movements but his hemoglobin dropped from yesterday to today 1 point. Vitals/I&O/Wt Last Vital Signs Temp 98.3 F 07/11/24 06:45 Pulse 74 07/11/24 06:45 Resp 22 H 07/11/24 06:45 BP 145/97 07/11/24 06:45 Pulse Ox 100 07/11/24 06:45 O2 Del Method Nasal Cannula 07/11/24 06:00 O2 Flow Rate 2 07/11/24 06:00 07/10/24 07/11/24 07/11/24 22:59 06:59 14:59 Intake Total 1089.0 / 2785.333 1154.75 / 3940.083 Output Total 2525 / 2525 1150 / 3675 Balance -1436.0 / 260.333 4.75 / 265.083 Weight last 48 hrs Weight 195 lb 8 oz Weight 191 lb 3.2 oz Weight 191 lb 3.2 oz Weight 188 lb 6.4 oz Weight 190 lb Physical Exam 2 Narrative: General : Patient is well developed , no acute distress, oriented x3 Head : Normal cephalic, a-traumatic. Nose : Mucous membranes are without erythema. Lungs : Equal chest rise bilaterally, no use of accessory muscles, trachea is midline. CV : Rate and rhythm are normal. Abdomen : Soft, ND, NT, no g/r/m Extremities : No edema. Upper extremities are normal bilaterally. Back : non-tender to palpation, no CVA tenderness. Data 07/11/24 04:36 07/11/24 04:36 Micro: Microbiology 07/10/24 00:05 Blood Culture - Preliminary Blood NEGATIVE TO DATE 07/10/24 00:01 Blood Culture - Preliminary Blood NEGATIVE TO DATE A&P Assessment and plan (1) GI bleed: (2) Acute upper GI bleed: Plan Patient is postoperative day 1 status post upper endoscopy for upper GI bleeding. Upper endoscopy revealed multiple ulcers in the antrum of the stomach there was a large cratered ulcer that was clipped due to the presence of a visible vessel, there was no active bleeding during my endoscopy yesterday. Since patient has been doing okay but due to the fact that he is hemoglobin has trended down we can consider CT of the abdomen and pelvis with contrast for evaluation of possible active bleeding. If hemoglobin does not stabilize and continues to trend down patient will require transfer to higher level of care for possible embolization of repeat endoscopy by a GI specialist. In the interim continue current management by medical team, he may benefit from reinitiation of his blood pressure medication as he is elevated blood pressure could be contributing to recurrent bleeding. Attestations 2 Medical Necessity Statement*: Per medical team Coding Level of Care Code Acute Code for Chg Fwd Diagnoses GI bleed K92.2 Acute upper GI bleed K92.2
[2024-07-11] MEDS: multivitamin therapeutic Tablet 1 TAB PO (08:22)
[2024-07-11] MEDS: pantoprazole 40 mg SDV IVP ×2 (08:22→20:00)
[2024-07-11] MEDS: folic acid 1 mg Tablet PO (08:22)
[2024-07-11] MEDS: thiamine 100 mg Tablet PO (08:22)
[2024-07-11] MEDS: dextrose 5%-sod chloride 0.9% 1,000 ML 125 ML IV (08:23)
[2024-07-11] MEDS: losartan 50 mg Tablet 100 MG PO (09:08)
[2024-07-11 12:05] LABS: Hematocrit 24.1 % (37-53)
--- NOTE | 2024-07-11 12:06 | P.PN_ITS ---
Subjective 2 Subjective: Patient was seen this morning, denies any nausea, vomiting, abdominal pain, no diarrhea, no bloody or black stools, no hematemesis, hemoglobin 6.5, has received 1 unit PRBC, will have to monitor him closely in the ICU, keep him on clear liquids keep him up with tonics and Carafate, monitor his hemoglobin if he becomes anemic or continues to have evidence of bleeding or becomes hypotensive will likely need to transfer him to tertiary level center for consideration for vascular embolectomy, but will continue to monitor him closely in ICU, Vitals/I&O/Wt Last Vital Signs Temp 99.1 F 07/11/24 08:00 Pulse 66 07/11/24 10:00 Resp 12 07/11/24 10:00 BP 138/86 07/11/24 10:00 Pulse Ox 99 07/11/24 10:00 O2 Del Method Nasal Cannula 07/11/24 06:00 O2 Flow Rate 2 07/11/24 06:00 07/10/24 07/11/24 07/11/24 22:59 06:59 14:59 Intake Total 1089.0 / 2785.333 1154.75 / 3940.083 1239.583 / 1239.583 Output Total 2525 / 2525 1150 / 3675 Balance -1436.0 / 260.333 4.75 / 660.523 6396.583 / 1239.583 Weight last 48 hrs Weight 88.677 kg Weight 86.727 kg Weight 86.727 kg Weight 85.457 kg Weight 86.183 kg Physical Exam 2 Const: COMMON NORMALS: no acute distress and patient oriented x3 Resp: COMMON NORMALS: normal respiratory effort, No retractions, No use of accessory muscles and clear to auscultation bilaterally AUSCULTATION: clear to auscultation bilaterally Cardio: COMMON NORMALS: regular rate, regular rhythm, S1 normal heart sound present and S2 normal heart sound present RATE: regular rate RHYTHM: r egular rhythm HEART SOUNDS: S1 normal heart sound present and S2 normal heart sound present GI: COMMON NORMALS: Normal to inspection, nondistended, normoactive bowel sounds present and non-tender Extremity: COMMON NORMALS: no pedal edema Neuro: COMMON NORMALS: patient oriented x3 Psych: COMMON NORMALS: mental status grossly normal Data 07/11/24 11:56 07/11/24 04:36 Micro: Microbiology 07/10/24 00:05 Blood Culture - Preliminary Blood NEGATIVE TO DATE 07/10/24 00:01 Blood Culture - Preliminary Blood NEGATIVE TO DATE A&P Assessment and plan (1) GI bleed: Acute GI bleed EGD showed upper endoscopy revealed multiple ulcers in the antrum of the stomach, a large cratered ulcer that was clipped due to the presence of a visible vessel, there was no active bleeding Multiple risk factors , prior steroid use, alcohol use, increased stress Protonix 40 IV twice daily Carafate 1 g every 6 hours Status post 2 units PRBC, hemoglobin 8 Monitor hemoglobin every 6 hours General surgery consulted, Clear liquid diet # Monitor hemodynamics closely, monitor hemoglobin closely, if has evidence of rebleeding, recurrent bleeding we will have to consider transfer to tertiary level center for vascular intervention/GI (2) Hypertension: Start losartan Qualifiers: Hypertension type: essential hypertension Qualified Code(s): I10 - Essential (primary) hypertension (3) Hypokalemia: Start hydrochlorothiazide (4) Acute blood loss anemia: Acute blood loss anemia secondary to GI bleed Management noted as above (5) Acute kidney injury: Monitor Plan DVT prophylaxis: SCDs, Lovenox relatively contraindicated given history of GI bleed CODE STATUS: Full code History of alcoholism, CIWA Attestations 2 Medical Necessity Statement*: Patient requires hospitalization for upper GI bleed Diagnoses GI bleed K92.2 Essential hypertension I10 Hypertension type: essential hypertension Hypokalemia E87.6 Acute blood loss anemia D62 Acute kidney injury N17.9
[2024-07-11] MEDS: hydroCHLOROthiazide 25 mg Tablet 12.5 MG PO (12:18)
[2024-07-11 12:55] LABS: Anion Gap 12.3 (5-19); Blood Urea Nitrogen 21 mg/dL (8-23); Calcium 7.7 mg/dL (8.5-10.5); Carbon Dioxide 25 mmol/L (22-29); Chloride 109 mmol/L (98-107); Creatinine Clr Calc Pharmacy 85.1314; Glomerular Filtration Rate 75.2 mL/min (90-130); Glucose 102 mg/dL (65-115); Osmolality Calculated 299 mOsm/kg (285-295); Potassium 3.3 mmol/L (3.5-5.1); Sodium 143 mmol/L (136-145)
[2024-07-11] MEDS: sodium chloride 0.9% 1,000 ML 50 ML IV (15:45)
[2024-07-11 16:06] LABS: Hematocrit 23.5 % (37-53)
[2024-07-11] MEDS: lidocaine 1% 5 ML in potassium chloride premix 100 ML 52.5 ML IV ×2 (19:59→21:58)
[2024-07-11] MEDS: LORazepam 2 mg Tablet PO (20:02)
[2024-07-11 20:51] LABS: Hematocrit 23.8 % (37-53)
[2024-07-11] MEDS: HYDROmorphone 1 mg/mL INJ 1 mL 0.4 MG IVP (21:40)
[2024-07-11] MEDS: NIFEdipine ER (24 hr) 30 mg Tablet PO (23:27)
[2024-07-12] VITALS (36 sets, daily range): BP systolic 133–180; BP diastolic 76–113; PULSE 63–94; RESP 9–23; TEMP 36.8–37.4; O2SAT 89–97
[2024-07-12 01:27] LABS: Hematocrit 23.9 % (37-53)
[2024-07-12] MEDS: sucralfate 1 gm/10 mL Oral Liq UDC PO ×4 (02:55→21:10)
[2024-07-12] MEDS: HYDROmorphone 1 mg/mL INJ 1 mL 0.4 MG IVP (03:37)
[2024-07-12 05:15] LABS: Hematocrit 24.6 % (37-53)
[2024-07-12 08:00] LABS: Hematocrit 24.7 % (37-53)
[2024-07-12 08:34] LABS: Blood Urea Nitrogen 13 mg/dL (8-23); Calcium 7.9 mg/dL (8.5-10.5); Carbon Dioxide 25 mmol/L (22-29); Chloride 110 mmol/L (98-107); Glomerular Filtration Rate 75.2 mL/min (90-130); Glucose 90 mg/dL (65-115); Osmolality Calculated 298 mOsm/kg (285-295); Sodium 144 mmol/L (136-145)
[2024-07-12 08:38] LABS: Anion Gap 12.2 (5-19); Potassium 3.2 mmol/L (3.5-5.1)
[2024-07-12] MEDS: pantoprazole 40 mg SDV IVP ×2 (09:04→21:09)
[2024-07-12] MEDS: folic acid 1 mg Tablet PO (09:04)
[2024-07-12] MEDS: thiamine 100 mg Tablet PO (09:05)
[2024-07-12] MEDS: losartan 50 mg Tablet 100 MG PO (09:05)
[2024-07-12] MEDS: multivitamin therapeutic Tablet 1 TAB PO (09:05)
[2024-07-12] MEDS: hydroCHLOROthiazide 25 mg Tablet 12.5 MG PO (09:05)
[2024-07-12] MEDS: lidocaine 1% 5 ML in potassium chloride premix 100 ML 52.5 ML IV (09:05)
--- NOTE | 2024-07-12 09:10 | P.PN_ITS ---
Subjective 2 Subjective: Patient is doing well, denies abdominal pain, no nausea or vomit. Vitals/I&O/Wt Last Vital Signs Temp 98.4 F 07/12/24 08:30 Pulse 72 07/12/24 08:30 Resp 16 07/12/24 08:30 BP 133/76 07/12/24 08:30 Pulse Ox 93 07/12/24 08:30 O2 Del Method Nasal Cannula 07/12/24 08:30 O2 Flow Rate 2 07/12/24 08:30 07/11/24 07/12/24 07/12/24 22:59 06:59 14:59 Intake Total 105 / 1694.583 105 / 1799.583 Output Total 750 / 750 600 / 1350 Balance -645 / 944.583 -495 / 449.583 Weight last 48 hrs Weight 195 lb Weight 195 lb 8 oz Physical Exam 2 GI: OTHER: Abdomen soft nontender nondistended. Data 07/12/24 07:50 07/12/24 04:54 A&P Assessment and plan (1) Acute upper GI bleed: Plan Patient is showing adequate progression after recent episode of upper GI bleeding. After endoscopy he had initial downtrend of the hemoglobin requiring 1 unit of blood transfusion but after that her hemoglobin has remained stable. He is doing otherwise well, we will monitor him for another 24 hours in house before deciding on transition to outpatient. If there is further downtrend of the hemoglobin we may require transfer to high-level care for repeat endoscopy versus enjoyable excision of bleeding vessel in the stomach. If hemoglobin remains stable no further intervention is needed and patient will require to continue high-dose PPI and Carafate and repeat endoscopy in 6 to 8 weeks. Plan has been discussed with the patient who agrees Attestations 2 Medical Necessity Statement*: Per medical team Coding Level of Care Code Acute Code for Chg Fwd Diagnoses Acute upper GI bleed K92.2
[2024-07-12] MEDS: TRAMadol 50 mg Tablet PO (10:35)
--- NOTE | 2024-07-12 11:13 | P.PN_ITS ---
Subjective 2 Subjective: Patient was seen this morning, he had 1 episode of black tarry bowel movement yesterday earlier in the evening, but has had none since then, no lightheadedness, dizziness, no nausea, no vomiting, hemoglobin stable at 8.2, we discussed monitoring him as inpatient for another 24 hours, we will have him on a clear liquid diet, have him get up and ambulate, monitor hemoglobin closely, monitor for black tarry stools, he is agreeable Vitals/I&O/Wt Last Vital Signs Temp 98.4 F 07/12/24 08:30 Pulse 80 07/12/24 10:00 Resp 18 07/12/24 10:00 BP 180/106 07/12/24 10:00 Pulse Ox 89 L 07/12/24 10:00 O2 Del Method Room Air 07/12/24 10:00 O2 Flow Rate 2 07/12/24 08:30 07/11/24 07/12/24 07/12/24 22:59 06:59 14:59 Intake Total 105 / 1694.583 105 / 1799.583 882.5 / 882.5 Output Total 750 / 750 600 / 1350 Balance -645 / 944.583 -495 / 449.583 882.5 / 882.5 Weight last 48 hrs Weight 88.451 kg Weight 88.677 kg Physical Exam 2 Const: COMMON NORMALS: no acute distress and patient oriented x3 Resp: COMMON NORMALS: normal respiratory effort, No retractions, No use of accessory muscles and clear to auscultation bilaterally AUSCULTATION: clear to auscultation bilaterally Cardio: COMMON NORMALS: regular rate, regular rhythm, S1 normal heart sound present and S2 normal heart sound present RATE: regular rate RHYTHM: r egular rhythm HEART SOUNDS: S1 normal heart sound present and S2 normal heart sound present GI: COMMON NORMALS: Normal to inspection, nondistended, normoactive bowel sounds present and non-tender Extremity: COMMON NORMALS: no pedal edema Neuro: COMMON NORMALS: patient oriented x3 Psych: COMMON NORMALS: mental status grossly normal Data 07/12/24 07:50 07/12/24 04:54 A&P Assessment and plan (1) GI bleed: Acute GI bleed 's hemoglobin 8.2 EGD showed upper endoscopy revealed multiple ulcers in the antrum of the stomach, a large cratered ulcer that was clipped due to the presence of a visible vessel, there was no active bleeding Multiple risk factors , prior steroid use, alcohol use, increased stress Protonix 40 IV twice daily Carafate 1 g every 6 hours Status post 2 units PRBC, hemoglobin 8.2 Monitor hemoglobin every 6 hours General surgery consulted, Clear liquid diet, will consider advancing based on clinical progress # Monitor hemodynamics closely, monitor hemoglobin closely, if has evidence of rebleeding, recurrent bleeding we will have to consider transfer to tertiary level center for vascular intervention/GI (2) Hypertension: Start losartan, nifedipine Qualifiers: Hypertension type: essential hypertension Qualified Code(s): I10 - Essential (primary) hypertension (3) Hypokalemia: Start hydrochlorothiazide (4) Acute blood loss anemia: Acute blood loss anemia secondary to GI bleed Management noted as above (5) Acute kidney injury: Monitor Plan DVT prophylaxis: SCDs, Lovenox relatively contraindicated given history of GI bleed CODE STATUS: Full code History of alcoholism, CIWA. Attestations 2 Medical Necessity Statement*: Patient requires hospitalization, for GI bleed, gastric ulcer, acute blood loss anemia Diagnoses GI bleed K92.2 Essential hypertension I10 Hypertension type: essential hypertension Hypokalemia E87.6 Acute blood loss anemia D62 Acute kidney injury N17.9
[2024-07-12 12:31] LABS: Hematocrit 25.9 % (37-53)
[2024-07-12] MEDS: morphine 4 mg/mL SDV 1 mL 2 MG IVP (15:16)
[2024-07-12] MEDS: BuSPIRONE 10 mg Tablet PO (19:13)
[2024-07-13] MEDS: TRAMadol 50 mg Tablet PO (00:25)
[2024-07-13] MEDS: ALPRAZolam 0.5 mg Tablet PO (00:59)
[2024-07-13 01:11] LABS: Hematocrit 26.8 % (37-53)
[2024-07-13] MEDS: sucralfate 1 gm/10 mL Oral Liq UDC PO ×2 (01:38→08:59)
[2024-07-13 04:00] VITALS: BP 156/94; PULSE 76; RESP 15; TEMP 36.7; O2SAT 94
[2024-07-13 04:03] LABS: Basophils # 0.1 10^3/uL (0.0-0.1); Basophils % 0.8 %; Eosinophils # 0.2 10^3/uL (0.0-0.8); Eosinophils % 3.2 %; Hematocrit 27.3 % (37-53); Lymphocytes # 1.8 10^3/uL (0.8-4.8); Lymphocytes % 27.4 %; Mean Corpuscular HGB Conc 33.3 g/dL (30-55); Mean Corpuscular Hemoglobin 28.2 pg (27-33); Mean Corpuscular Volume 84.5 fl (82-101); Mean Platelet Volume 10.2 fL (7.4-10.4); Monocytes # 0.9 10^3/uL (0.2-0.9); Monocytes % 13.4 %; Neutrophils # 3.58 10^3/uL (1.8-7.7); Nucleated Red Blood Cells % 0 %; Platelet Count 251 10^3/cmm (157-399); Red Blood Count 3.23 10^6/uL (3.85-5.65); Red Cell Distribution Width 14.2 % (12.1-15.1)
[2024-07-13 04:22] LABS: Anion Gap 14.8 (5-19); Blood Urea Nitrogen 10 mg/dL (8-23); Calcium 8.2 mg/dL (8.5-10.5); Carbon Dioxide 26 mmol/L (22-29); Chloride 103 mmol/L (98-107); Creatinine Clr Calc Pharmacy 83.0055; Glomerular Filtration Rate 75.2 mL/min (90-130); Glucose 100 mg/dL (65-115); Osmolality Calculated 291 mOsm/kg (285-295); Sodium 141 mmol/L (136-145)
[2024-07-13 04:29] LABS: Potassium 2.8 mmol/L (3.5-5.1)
[2024-07-13] MEDS: potassium chloride ER 20 mEq Tablet 40 MEQ PO ×2 (05:03→09:55)
[2024-07-13 07:09] VITALS: BP 145/88; PULSE 67; RESP 20; TEMP 36.4; O2SAT 96
[2024-07-13 08:04] VITALS: O2SAT 93
[2024-07-13] MEDS: NIFEdipine ER (24 hr) 30 mg Tablet 60 MG PO (08:57)
[2024-07-13] MEDS: thiamine 100 mg Tablet PO (08:57)
[2024-07-13] MEDS: multivitamin therapeutic Tablet 1 TAB PO (08:57)
[2024-07-13] MEDS: folic acid 1 mg Tablet PO (08:58)
[2024-07-13] MEDS: hydroCHLOROthiazide 25 mg Tablet 12.5 MG PO (08:58)
[2024-07-13] MEDS: BuSPIRONE 10 mg Tablet PO (08:59)
[2024-07-13] MEDS: losartan 50 mg Tablet 100 MG PO (08:59)
--- NOTE | 2024-07-13 09:16 | P.DS_ITS ---
Discharge Providers Date of Admission: 07/10/24 01:04 Date of Discharge: July 13, 2024 Attending Provider at Admission: Hakeem Davis MD Attending Provider at Discharge: Gustavo Yepez MD Primary Care Provider: Davin Roe MD Diagnoses at Discharge Discharge Diagnosis (1) GI bleed: Status: Acute (2) Hypertension: Status: Acute Qualifiers: Hypertension type: essential hypertension Qualified Code(s): I10 - Essential (primary) hypertension (3) Hypokalemia: Status: Acute (4) Acute blood loss anemia: Status: Acute (5) Acute kidney injury: Status: Acute Reason for Visit Reason for Visit: N/V Hospital Course Hospital Course Elieser Griffin is a 64 year old male with a past medical history significant for chronic back pains on chronic NSAIDs, hypertension, depression, sleep apnea, and multiple other comorbidities who presents to the emergency department with nausea and vomiting. He endorses associated lightheadedness as well as black tarry stools. He reports he may have passed out once. Denies head trauma. Denies any focal deficits. He reports a burning epigastric pain for the past 3 to 4 months. Exertion worsens symptoms. Rest improves. In the emergency department, labs were suspicion for upper GI bleed. Patient denies known history of personal GI bleed. He cannot recall quite all his medications. He does report he is on a chronic NSAID, believes it to be meloxicam. He has been treated with multiple doses of prednisone this year. He states he just received another dose of prednisone but had not started taking it yet. He does report alcohol abuse about 3 weeks ago. States he started drinking heavily again and it scared him so he is quit. Denies any alcohol use in the past 3 weeks. Patient was admitted to [facility] for GI bleed, monitored in the ICU, general surgery was consulted, status post units PRBC GI bleed: Acute GI bleed hemoglobin 8.2 EGD showed upper endoscopy revealed multiple ulcers in the antrum of the stomach, a large cratered ulcer that was clipped due to the presence of a visible vessel, there was no active bleeding Multiple risk factors , prior steroid use, alcohol use, increased stress Protonix 40 IV twice daily Carafate 1 g every 6 hours Status post 2 units PRBC, hemoglobin 8.2 After his EGD, patient had episodes of recurrent black tarry stool, no hemodynam ic compromise, no further additional transfusions required, hemoglobin remained stable, had extensive discussion with him that as he continues to have black tarry stools, will have to hold aspirin therapy for now Patient was monitored as inpatient, overall clinically improved, will be discharged on Protonix, Carafate, instructions to stop aspirin for now, stop meloxicam, follow-up with primary care provider in 1 week for recheck hemoglobin follow-up with Dr. May in 2 weeks, for repeat EGD in 2 to 4 weeks, biopsy results, H. pylori results if patient has any chest pain or strokelike symptoms to immediately call 9 1 In terms of aspirin, patient was diagnosed with a stroke in 2019, we discussed risk and benefits of holding antiplatelet therapy, he voiced understanding, all questions answered, agreed to proceed to hold aspirin for now, follow-up with Dr. Heath for at least 2 weeks, decision to resume aspirin will be based on shared decision making Patient was advised to abstain from alcohol consumption, morbidity and mortality discussed Physical Exam Const: COMMON NORMALS: no acute distress and patient oriented x3 Resp: COMMON NORMALS: normal respiratory effort, No retractions, No use of accessory muscles and clear to auscultation bilaterally AUSCULTATION: clear to auscultation bilaterally Cardio: COMMON NORMALS: regular rate, regular rhythm, S1 normal heart sound present and S2 normal heart sound present RATE: regular rate RHYTHM: regular rhythm HEART SOUNDS: S1 normal heart sound present and S2 normal heart sound present GI: COMMON NORMALS: Normal to inspection, nondistended, normoactive bowel sounds present and non-tender Extremity: COMMON NORMALS: no pedal edema Neuro: COMMON NORMALS: patient oriented x3 Psych: COMMON NORMALS: mental status grossly normal Discharge Data Studies Completed and Pending Completed Studies During Hospitalization Category Date Time Status XR chest 1V portable [id number] Stat Exams 07/09/24 23:36 Completed Pending at discharge Category Date Time Status BMP [Basic Metabolic Panel] Stat Lab 07/13/24 08:55 Received Basic Metabolic Panel AM LABS Lab 07/14/24 04:00 Ordered Basic Metabolic Panel AM LABS Lab 07/15/24 04:00 Ordered Blood Culture Stat Lab 07/09/24 23:36 Results Complete Blood Count w/Auto AM LABS Lab 07/14/24 04:00 Ordered Complete Blood Count w/Auto AM LABS Lab 07/15/24 04:00 Ordered Pathology: Surgical [PTH] Routine Pth 07/10/24 13:09 Received Radiology Impressions Chest X-Ray 07/09/24 23:36 IMPRESSION: 1. Low lung volumes. Bibasilar atelectasis and vascular crowding. 2. No focal consolidation or sizable pleural effusion. Laboratory Results WBC 6.50 10^3/uL (3.29-11.43) 07/13/24 03:47 RBC 3.23 10^6/uL (3.85-5.65) L 07/13/24 03:47 Hgb 9.10 g/dL (11.27-16.99) L 07/13/24 03:47 Hct 27.3 % (37-53) L 07/13/24 03:47 MCV 84.5 fl (82-101) 07/13/24 03:47 MCH 28.2 pg (27-33) 07/13/24 03:47 MCHC 33.3 g/dL (30-55) 07/13/24 03:47 RDW 14.2 % (12.1-15.1) 07/13/24 03:47 Plt Count 251 10^3/cmm (157-399) 07/13/24 03:47 MPV 10.2 fL (7.4-10.4) 07/13/24 03:47 Neut % (Auto) 55.0 % 07/13/24 03:47 Lymph % (Auto) 27.4 % 07/13/24 03:47 [place] % (Auto) 13.4 % 07/13/24 03:47 Eos % (Auto) 3.2 % 07/13/24 03:47 Baso % (Auto) 0.8 % 07/13/24 03:47 Neut # (Auto) 3.58 10^3/uL (1.8-7.7) 07/13/24 03:47 Lymph # (Auto) 1.8 10^3/uL (0.8-4.8) 07/13/24 03:47 [place] # (Auto) 0.9 10^3/uL (0.2-0.9) 07/13/24 03:47 Eos # (Auto) 0.2 10^3/uL (0.0-0.8) 07/13/24 03:47 Baso # (Auto) 0.1 10^3/uL (0.0-0.1) 07/13/24 03:47 Nucleated RBC % (auto) 0 % 07/13/24 03:47 Nucleated RBCs # 0.0 /100WBC 07/13/24 03:47 PT 16.00 SECONDS (12.1-14.9) H 07/09/24 23:15 INR 1.24 (0.8-1.2) H 07/09/24 23:15 APTT 23.3 SECONDS (23.9-36.7) L 07/09/24 23:15 Sodium 141 mmol/L (136-145) 07/13/24 03:47 Potassium 2.8 mmol/L (3.5-5.1) L* 07/13/24 03:47 Chloride 103 mmol/L (98-107) 07/13/24 03:47 Carbon Dioxide 26 mmol/L (22-29) 07/13/24 03:47 Anion Gap 14.8 (5-19) 07/13/24 03:47 BUN 10 mg/dL (8-23) 07/13/24 03:47 Creatinine 1.0 mg/dL (0.7-1.2) 07/13/24 03:47 GFR Calculation 75.2 mL/min (90-130) L 07/13/24 03:47 Glucose 100 mg/dL (65-115) 07/13/24 03:47 Calculated Osmolality 291 mOsm/kg (285-295) 07/13/24 03:47 Lactic Acid 4.3 mmol/L (0.5-2.2) H* 07/09/24 23:15 Lactic Acid (Sepsis) 1.2 mmol/L (0.5-2.2) 07/10/24 02:04 Calcium 8.2 mg/dL (8.5-10.5) L 07/13/24 03:47 Magnesium 1.8 mg/dL (1.7-2.3) 07/11/24 04:36 Total Bilirubin 0.3 mg/dL (0.15-1.2) 07/11/24 04:36 AST 11 U/L (0-40) 07/11/24 04:36 ALT 12 U/L (0-41) 07/11/24 04:36 Alkaline Phosphatase 49 U/L (40-130) 07/11/24 04:36 Troponin T Baseline 16 ng/L (0-15) H 07/09/24 23:15 C-Reactive Protein 3.0 mg/L (0.0-4.9) 07/09/24 23:15 Total Protein 4.9 g/dL (6.6-8.7) L 07/11/24 04:36 Albumin 3.0 g/dL (3.5-5.2) L 07/11/24 04:36 Globulin 1.9 g/dL (1.3-4.6) 07/11/24 04:36 Urine Color Yellow (Yellow) 07/10/24 08:55 Urine Appearance Clear (CLEAR) 07/10/24 08:55 Urine pH 5.5 (5-7) 07/10/24 08:55 Ur Specific [place] 1.024 (1.005-1.030) 07/10/24 08:55 Urine Protein Negative (Negative) 07/10/24 08:55 Urine Glucose (UA) Negative (Normal) 07/10/24 08:55 Urine Ketones Negative (Negative) 07/10/24 08:55 Urine Blood Negative (Negative) 07/10/24 08:55 Urine Nitrate Negative (Negative) 07/10/24 08:55 Urine Bilirubin Negative (Negative) 07/10/24 08:55 Urine Urobilinogen 1.0 mg/dL (Negative) 07/10/24 08:55 Ur Leukocyte Esterase Negative (Negative) 07/10/24 08:55 Urine RBC 0-2 /hpf (0-2) 07/10/24 08:55 Urine WBC 0-5 /hpf (0-5) 07/10/24 08:55 Ur Squamous Epith Cells 0-5 /hpf (0-5) 07/10/24 08:55 Amorphous Sediment Not Reportable 07/10/24 08:55 Urine Bacteria None seen /hpf (NONE) 07/10/24 08:55 Hyaline Casts 9.07 /lpf 07/10/24 08:55 Blood Type A Positive 07/10/24 00:01 Rho(D) Type Rh positive 07/10/24 00:01 Antibody Screen Negative 07/10/24 00:01 Crossmatch See Detail 07/10/24 00:01 Vitals Last Vital Signs Temp 97.6 F 07/13/24 07:09 Pulse 67 07/13/24 07:09 Resp 20 H 07/13/24 07:09 BP 145/88 07/13/24 07:09 Pulse Ox 93 07/13/24 08:04 O2 Del Method Room Air 07/13/24 08:04 O2 Flow Rate 2 07/12/24 08:30 Discharge Plan Discharge Patient Disposition: Home Condition: Stable Prescriptions: New Thera 400 mcg Tablet 1 tab PO DAILY 30 Days Qty: 30 0RF Vitamin B-1 (mononitrate) 100 mg Tablet 100 mg PO DAILY 30 Days Qty: 30 0RF Carafate 1 gram tablet 1 g PO BID 28 Days Qty: 56 0RF Protonix 40 mg tablet,delayed release (DR/EC) 40 mg PO BID 30 Days Qty: 60 0RF Continued potassium chloride 20 mEq tablet extended release 20 meq PO DAILY 60 Days Qty: 120 5RF nifedipine 60 mg tablet extended release 60 mg PO DAILY Qty: 30 5RF hydrochlorothiazide 12.5 mg tablet 12.5 mg PO DAILY Qty: 30 5RF losartan 100 mg tablet 100 mg PO DAILY Qty: 90 3RF buspirone 10 mg tablet 10 mg PO BID Qty: 60 3RF Discontinued aspirin 325 mg tablet 325 mg PO DAILY Qty: 30 11RF meloxicam 15 mg tablet 15 mg PO DAILY Qty: 30 8RF Discharge Orders: Discharge Order (Routine); Ordered 07/13/24 Ordered By: Gustavo Yepez Referrals: Davin Roe MD [Primary Care Provider] - 7-10 days (We have notified your physician's clinic of the need for a follow-up appointment to be scheduled. If you have not heard from them within the next 2 business days, please call them directly. ) Discharge Diet: Cardiac Discharge Activity: Resume usual activity Patient Instructions: Sucralfate (By mouth), Multivitamins, Adult Formula (By mouth), Pantoprazole (By mouth), Gastrointestinal Bleeding (DC), GI Post Discharge Instructions w/ Anesthesia, Opioid Safety Discharge Attestations Time Spent in Discharge Care*: greater than 30 min Quality Metrics Clinical Quality Measures [ No reported AMI, CVA or VTE this stay] Coding Level of Care Code 09062 Total time (in minutes) for Discharge: 45 Diagnoses GI bleed K92.2 Essential hypertension I10 Hypertension type: essential hypertension Hypokalemia E87.6 Acute blood loss anemia D62 Acute kidney injury N17.9
[2024-07-13 09:21] LABS: Anion Gap 15.2 (5-19); Blood Urea Nitrogen 10 mg/dL (8-23); Calcium 8.6 mg/dL (8.5-10.5); Carbon Dioxide 25 mmol/L (22-29); Chloride 103 mmol/L (98-107); Creatinine Clr Calc Pharmacy 69.1713; Glucose 131 mg/dL (65-115); Osmolality Calculated 291 mOsm/kg (285-295); Potassium 3.2 mmol/L (3.5-5.1); Sodium 140 mmol/L (136-145)
--- NOTE | 2024-07-13 10:01 | P.PN_ITS ---
Subjective 2 Subjective: This note is for 07/12/24 visit. Patient has no complaints and has not had bloody or black stool today. Vitals/I&O/Wt Last Vital Signs Temp 97.6 F 07/13/24 07:09 Pulse 67 07/13/24 07:09 Resp 20 H 07/13/24 07:09 BP 145/88 07/13/24 07:09 Pulse Ox 93 07/13/24 08:04 O2 Del Method Room Air 07/13/24 08:04 O2 Flow Rate 2 07/12/24 08:30 07/12/24 07/13/24 07/13/24 22:59 06:59 14:59 Intake Total 1660 / 3247.5 360 / 360 Balance 1660 / 1447.5 360 / 360 Weight last 48 hrs Weight 184 lb 6.4 oz Weight 195 lb Physical Exam 2 Narrative: Patient is a well developed well nourished and in NAD and is afebrile with vitals stable and is answering questions appropriately with a normal affect and is alert and oriented x3 HEENT: normocephalic with normal external ears and nonicteric, oral mucosa moist and dentition normal for age, trachea midline with no large masses visualized Heart: RRR, no gallops murmurs or rubs, normal PMI with no thrills Lungs: normal excursions, no loud audible wheezing, no subcutaneous emphysema Abdomen: nondistended, no gross hepatosplenomegaly, no masses, no rigidity or rebound, no loud borborygmi Neuro: nonfocal, DRAKE, grossly normal sensation Musculoskeletal: good muscle tone, no fasciculations, normal gait Skin: pink warm and dry with no rashes or ecchymosis Vascular: good radial pulses, no ulceration, less than 2 second capillary refill in hand : deferred Data 07/13/24 03:47 07/13/24 08:55 A&P Assessment and plan (1) Anemia due to acute blood loss: (2) GI bleed: Plan Hgb yesterday was in 8 range. He denies any bloody stools or significant abdominal pain. His discharge will be determined by hospitalist. Continue present care. RTC Dr. Truong in general surgery as outpatient for follow up. Attestations 2 Medical Necessity Statement*: See attending note by hospitalist. Coding Level of Care Code 90381 Diagnoses Anemia due to acute blood loss D62 GI bleed K92.2
--- NOTE | 2024-07-13 10:05 | P.PN_ITS ---
Subjective 2 Subjective: No abdominal pain or bloody stools. He can go days without BM at home Vitals/I&O/Wt Last Vital Signs Temp 97.6 F 07/13/24 07:09 Pulse 67 07/13/24 07:09 Resp 20 H 07/13/24 07:09 BP 145/88 07/13/24 07:09 Pulse Ox 93 07/13/24 08:04 O2 Del Method Room Air 07/13/24 08:04 O2 Flow Rate 2 07/12/24 08:30 07/12/24 07/13/24 07/13/24 22:59 06:59 14:59 Intake Total 1660 / 3247.5 360 / 360 Balance 1660 / 1447.5 360 / 360 Weight last 48 hrs Weight 184 lb 6.4 oz Weight 195 lb Physical Exam 2 Narrative: Patient is a well developed well nourished and in NAD and is afebrile with vitals stable and is answering questions appropriately with a normal affect and is alert and oriented x3 HEENT: normocephalic with normal external ears and nonicteric, oral mucosa moist and dentition normal for age, trachea midline with no large masses visualized Heart: RRR, no gallops murmurs or rubs, normal PMI with no thrills Lungs: normal excursions, no loud audible wheezing, no subcutaneous emphysema Abdomen: nondistended, no gross hepatosplenomegaly, no masses, no rigidity or rebound, no loud borborygmi Neuro: nonfocal, DRAKE, grossly normal sensation Musculoskeletal: good muscle tone, no fasciculations, normal gait Skin: pink warm and dry with no rashes or ecchymosis Vascular: good radial pulses, no ulceration, less than 2 second capillary refill in hand : deferred Data 07/13/24 03:47 07/13/24 08:55 A&P Assessment and plan (1) Acute upper GI bleed: Plan Patient states he likely will go home today. Follow up with Dr. Truong as outpatient for follow up. HGB up to 9's from 8's yesterday. No bloody stools but hasn't had BM for a couple of days and this is normal for him. He has not required blood transfusions since the one time he received it during his hospitalization. Attestations 2 Medical Necessity Statement*: See attending's note by hospitalist. Coding Level of Care Code 50226 Diagnoses Acute upper GI bleed K92.2
[2024-07-13 10:14] VITALS: O2SAT 93
== END 2024-07-13 09:58 | disposition home or self-care (01) | DRG 378 ==
LOC: ER 07-10 00:04 → ICU 07-10 01:19 → MEDSURG 07-12 18:07
PROVIDERS: Surgery; Admitting Provider Internal Medicine; Emergency Provider Emergency Medicine; PCP Family Medicine; Visit Provider Family Medicine
PROC: 0DJ08ZZ Inspection of Upper Intestinal Tract, Via Natural or Artificial Opening Endoscopic (ICD-10-PCS; CPT 43235; principal; 2024-07-10 12:00)
DX: K25.4 Chronic or unspecified gastric ulcer with hemorrhage (principal); D62 Acute posthemorrhagic anemia; N17.9 Acute kidney failure, unspecified; E87.6 Hypokalemia; G89.29 Other chronic pain; M54.9 Dorsalgia, unspecified; I10 Essential (primary) hypertension; F32.A Depression, unspecified; G47.33 Obstructive sleep apnea (adult) (pediatric); F10.10 Alcohol abuse, uncomplicated; N52.9 Male erectile dysfunction, unspecified; E78.00 Pure hypercholesterolemia, unspecified; K29.80 Duodenitis without bleeding; Z79.1 Long term (current) use of non-steroidal anti-inflammatories (NSAID); Z79.82 Long term (current) use of aspirin; Z86.73 Personal history of transient ischemic attack (TIA), and cerebral infarction without residual deficits
CPT/HCPCS: 36415; 36430; 43239; 71045; 80048; 80053; 81001; 83605; 83735; 84484; 85014; 85018; 85025; 85610; 85730; 86140; 86850; 86900; 86920; 87040; 88305; 88342; 93005; 96361; 96374; 96375; 99285; J1170; J2270; J2405; J2470; J2704; J3480; J7030; J7042; P9016

== ENCOUNTER → 2024-08-01 11:55 | Outpatient (BNVA) | payer OTHER, MEDICAID, SELFPAY | PROVIDERS: PCP Family Medicine; Visit Provider Family Medicine | DX: I10 Essential (primary) hypertension (principal); K92.2 Gastrointestinal hemorrhage, unspecified | CPT/HCPCS: 80053; 85025 ==

== ENCOUNTER → 2024-08-13 12:27 | Outpatient (BNVA) | payer OTHER, MEDICAID, SELFPAY | PROVIDERS: PCP Family Medicine; Visit Provider Family Medicine | DX: D62 Acute posthemorrhagic anemia (principal); K92.2 Gastrointestinal hemorrhage, unspecified; M54.6 Pain in thoracic spine; G89.29 Other chronic pain; R79.89 Other specified abnormal findings of blood chemistry; S62.639A Displaced fracture of distal phalanx of unspecified finger, initial encounter for closed fracture; M96.1 Postlaminectomy syndrome, not elsewhere classified; S46.012A Strain of muscle(s) and tendon(s) of the rotator cuff of left shoulder, initial encounter; E78.00 Pure hypercholesterolemia, unspecified; X58.XXXA Exposure to other specified factors, initial encounter | CPT/HCPCS: 80053 ==

== ENCOUNTER 2024-08-16 07:05 | Outpatient (CLI) | payer OTHER, MEDICAID, SELFPAY ==
--- NOTE | 2024-08-16 07:15 | MR_ITS ---
WS: [id number] MRI THORACIC SPINE WITHOUT CONTRAST TECHNIQUE: Sagittal T1, T2 and STIR imaging. Axial T2 imaging. Noncontrast imaging obtained. CLINICAL INFORMATION: back pain COMPARISON: None. FINDINGS: Mild thoracic curve. Moderate thoracic kyphosis. A few Schmorl's nodes and endplate edema in the midt horacic spine. Mild chronic anterior wedging in the midthoracic spine. No acute appearing compression fractures. No high-grade central canal stenosis. Cord signal is normal. Tiny shallow central protrusion at T9-T10 with mild central canal stenosis. Mild bilateral T9-T10 for aminal narrowing. Moderate facet arthropathy lower thoracic spine. Normal caliber thoracic aorta. LEFT thyroid nodule measuring 2.6 x 1.5 cm. MR/MR thoracic spin wo con* [id number] IMPRESSION: 1. Mild thoracic curve. Moderate thoracic kyphosis. 2. Endplate Schmorl's nodes with edema at T8-T9 and T9-T10. Chronic anterior w edging at these levels. 3. Shallow central protrusion T9-T10 with mild central canal stenosis. Mild RI GHT greater than LEFT bony foraminal narrowing at this level. 4. Moderate facet arthropathy lower thoracic spine. 5. LEFT thyroid nodule measuring 2.6 x 1.5 cm
== END 2024-08-16 07:06 | disposition home or self-care (01) ==
LOC: RAD 07:06
PROVIDERS: PCP Family Medicine; Visit Provider Orthopaedic Surgery
DX: M40.204 Unspecified kyphosis, thoracic region (principal); M51.44 Schmorl's nodes, thoracic region; M46.94 Unspecified inflammatory spondylopathy, thoracic region; E04.1 Nontoxic single thyroid nodule
CPT/HCPCS: 72146

== ENCOUNTER → 2024-08-22 11:30 | Outpatient (BNVA) | payer OTHER, MEDICAID, SELFPAY | PROVIDERS: PCP Family Medicine; Visit Provider Orthopaedic Surgery | DX: M54.6 Pain in thoracic spine (principal); G89.29 Other chronic pain | CPT/HCPCS: 85025; 86140 ==

== ENCOUNTER 2024-08-29 14:01 | Outpatient (RCR) | payer OTHER, MEDICAID, SELFPAY | END 2024-09-26 23:59 | disposition home or self-care (01) | LOC: SPT 14:01 | PROVIDERS: Visit Provider Orthopaedic Surgery | DX: M54.6 Pain in thoracic spine (principal); G89.29 Other chronic pain | CPT/HCPCS: 97110; 97161 ==

== ENCOUNTER → 2024-09-17 12:35 | Outpatient (BNVA) | payer OTHER, MEDICAID, SELFPAY | PROVIDERS: PCP Family Medicine; Visit Provider Family Medicine | DX: I10 Essential (primary) hypertension (principal); D62 Acute posthemorrhagic anemia | CPT/HCPCS: 80048; 83735; 85025 ==

== ENCOUNTER 2024-09-27 06:00 | Outpatient (RCR) | payer OTHER, MEDICAID, SELFPAY | END 2024-10-22 23:59 | disposition home or self-care (01) | LOC: SPT 06:00 | PROVIDERS: PCP Family Medicine; Visit Provider Orthopaedic Surgery | DX: M54.6 Pain in thoracic spine (principal); G89.29 Other chronic pain | CPT/HCPCS: 97110 ==

== ENCOUNTER 2025-02-05 11:35 | Outpatient (CLI) | payer OTHER, MEDICAID, SELFPAY ==
--- NOTE | 2025-02-05 11:48 | XR_ITS ---
WS: [id number] Chest 2 views, 02/05/2025 Clinical Data: episodic cough, progressive dyspnea w exertion Comparison: Portable chest, 07/09/2024 Findings: No nodules, masses or effusions are seen. The heart is normal. The pulmonary vascularity is not increased. No pneumonia or pneumothorax is seen. The aortic arch and descending thoracic aorta are tortuous. There is widening of the right AC joint unchanged. There are multiple orthopedic anchors in the right humeral head. XR/XR chest 2V* [id number] Impression: Atherosclerosis.
== END 2025-02-05 11:36 | disposition home or self-care (01) ==
LOC: LAB 11:39 → RAD 11:45
PROVIDERS: PCP Family Medicine; Visit Provider Family Medicine
DX: J20.9 Acute bronchitis, unspecified (principal); J21.9 Acute bronchiolitis, unspecified; I10 Essential (primary) hypertension; I70.0 Atherosclerosis of aorta; Z98.890 Other specified postprocedural states; R93.6 Abnormal findings on diagnostic imaging of limbs
CPT/HCPCS: 71046; 80053; 85025

== ENCOUNTER → 2025-05-27 09:59 | Outpatient (BNVA) | payer MEDICARE, SELFPAY | PROVIDERS: PCP Family Medicine; Visit Provider Family Medicine | DX: K29.70 Gastritis, unspecified, without bleeding (principal); E87.6 Hypokalemia | CPT/HCPCS: 80053; 85025 ==

== ENCOUNTER → 2025-07-25 08:27 | Outpatient (BNVA) | payer MEDICARE, MEDICAID, SELFPAY | PROVIDERS: PCP Family Medicine; Visit Provider Specialist | DX: M19.012 Primary osteoarthritis, left shoulder (principal); S46.012A Strain of muscle(s) and tendon(s) of the rotator cuff of left shoulder, initial encounter; M67.912 Unspecified disorder of synovium and tendon, left shoulder; X58.XXXA Exposure to other specified factors, initial encounter | CPT/HCPCS: 20610; J1100; J2795; J3301; J9999 ==

== ENCOUNTER → 2025-10-07 09:55 | Outpatient (BNVA) | payer MEDICARE, MEDICAID, SELFPAY | PROVIDERS: PCP Family Medicine; Referring Provider Family Medicine; Visit Provider Anesthesiology Pain Medicine | DX: M54.6 Pain in thoracic spine (principal) | CPT/HCPCS: 99204 ==

== ENCOUNTER → 2025-10-15 10:48 | Outpatient (BNVA) | payer MEDICARE, MEDICAID, SELFPAY | PROVIDERS: PCP Family Medicine; Visit Provider Anesthesiology Pain Medicine | DX: M79.18 Myalgia, other site (principal); M54.6 Pain in thoracic spine; Z87.891 Personal history of nicotine dependence | CPT/HCPCS: 20553; 99214; J1010; J3490 ==

== ENCOUNTER → 2025-10-31 09:05 | Outpatient (BNVA) | payer MEDICARE, SELFPAY | PROVIDERS: PCP Family Medicine; Visit Provider Specialist | DX: M19.012 Primary osteoarthritis, left shoulder (principal) | CPT/HCPCS: 20610; J1100; J2795; J3301; J9999 ==